=== PATIENT | female | born 1940 | race American Indian/Alaskan Native ===

== ENCOUNTER 2017-09-12 15:51 | Emergency (ER) | payer MEDICARE ==
[2017-09-12 16:59] LABS: Basophils # (Auto) 0.1 K/mm3 (0.0-0.1); Basophils % (Auto) 0.4 % (0.0-1.8); Eosinophils # (Auto) 0.2 K/mm3 (0.0-0.4); Eosinophils % (Auto) 1.2 % (0.0-4.3); Hematocrit 41.5 % (30.3-42.9); Hemoglobin 13.8 gm/dl (10.1-14.3); Lymphocytes # (Auto) 2.8 K/mm3 (1.2-5.4); Lymphocytes % (Auto) 19.3 % (13.4-35.0); Mean Corpuscular HGB Conc 33 % (30-34); Mean Corpuscular Hemoglobin 28 pg (28-32); Mean Corpuscular Volume 84 fl (79-97); Monocytes % (Auto) 6.6 % (0.0-7.3); Platelet Count 254 K/mm3 (140-440); Red Blood Count 4.92 M/mm3 (3.65-5.03); Red Cell Distribution Width 14.6 % (13.2-15.2)
[2017-09-12 17:05] LABS: INR 0.91 (0.87-1.13)
[2017-09-12 17:06] LABS: Partial Thromboplastin Time 23.5 Sec. (24.2-36.6)
[2017-09-12 17:27] LABS: BUN/Creatinine Ratio 25; Blood Urea Nitrogen 10 mg/dL (7-17); Hemolysis Index 9
--- NOTE | 2017-09-12 17:55 | Cat Scan Report ---
FINAL REPORT PROCEDURE: CT head without contrast. TECHNIQUE: Computerized tomography of the head was performed without contrast material. HISTORY: Patient fell, head injury. COMPARISON: No prior studies are available for comparison. FINDINGS: The ventricles are normal in size. The jewell matter and white matter appear normal. There are no mass lesions. There is no intracranial hemorrhage. The calvarium appears intact. The mastoid air cells are clear. There is fluid and severe mucosal thickening in the left maxillary sinus. There is opacification of the left frontal sinus. IMPRESSION: Normal study of the brain for age. Left maxillary and frontal sinusitis.
--- NOTE | 2017-09-12 17:57 | Cat Scan Report ---
FINAL REPORT PROCEDURE: CT cervical spine without contrast. TECHNIQUE: Computerized tomography of the cervical spine was performed from the skull base to T1 without contrast material. HISTORY: Patient fell, neck pain. COMPARISON: No prior studies are available for comparison. FINDINGS: The cervical vertebrae have normal height and alignment. There are no fractures. There is no subluxation. There is moderate disc space narrowing at C2-3 C5-6 and C6-7. There are small vertebral body osteophytes in the lower cervical spine. The spinal canal appears adequately patent. The facet joints appear satisfactory. The neural foramina are adequately patent. The prevertebral soft tissues have normal thickness. IMPRESSION: No evidence of acute cervical spine injury.
[2017-09-12] MEDS ORDERED: MORPHINE IV ONE (18:04)
[2017-09-12] MEDS ORDERED: ZOFRAN IV ONE (18:04)
[2017-09-12] MEDS ORDERED: NACL 0.9% 1000 ML 1,000 ML IV ONE (18:04)
--- NOTE | 2017-09-12 18:52 | XRay Report ---
FINAL REPORT PROCEDURE: Chest. TECHNIQUE: Chest radiograph anteroposterior view. CPT 30226 HISTORY: Patient fell, chest pain. COMPARISON: No prior studies are available for comparison. FINDINGS: The radiograph is underpenetrated. The heart size is normal. There is mild tortuosity of the thoracic aorta. The lungs are clear and well expanded. There are no pleural effusions. The soft tissues and regional skeleton are unremarkable. IMPRESSION: No evidence of acute disease.
--- NOTE | 2017-09-12 18:55 | XRay Report ---
FINAL REPORT PROCEDURE: Right shoulder. TECHNIQUE: Three views. HISTORY: Patient fell, shoulder pain. COMPARISON: No prior studies are available for comparison. FINDINGS: There is curvilinear calcification located posterior to the humeral head. This is seen best on the image done with internal rotation. This could represent an old cortical fracture fragment. I doubt that this represents an acute injury, however that is not definitely excluded. Clinical correlation is recommended. Degenerative soft tissue calcification is also a possibility. The glenohumeral joint appears satisfactory. The acromioclavicular joint is normal. The soft tissues are unremarkable. IMPRESSION: Question old cortical fracture fragment off the posterior margin of the humeral head. Please see above comments.
--- NOTE | 2017-09-12 19:17 | Emergency Department Report ---
ED General Adult HPI - General Chief complaint: Extremity Injury, Upper Stated complaint: RT SHOULDER PAIN/HEAD PAIN Time Seen by Provider: 09/12/17 16:16 Source: EMS Mode of arrival: Stretcher Limitations: Other - History of Present Illness Initial comments: The patient states that she is diabetic and has a tendency to fall. This time she fell, she tripped on a rug. She states the road is on a concrete slab and that is why she slipped on it. She complains of discomfort in her right shoulder progressively. She stated that she had some headache at triage but denied this to me. She was sent for a CT of her head cervical spine which showed no acute process. She is only complaining of right shoulder pain at the time of my exam. She doesn't report any previous fracture. She doesn't report any focal neurological change, dizziness or speech difficulty. She states that she is able to walk easily without difficulty. She does state that when her sugar goes up she feels somewhat dizzy. She denies any recent fever or chills or any other supplemental symptoms such as cough shortness breath or chest pain. -: Gradual Location: right, upper extremity Radiation: non-radiation Quality: aching Consistency: constant Improves with: none Worsens with: movement Associated Symptoms: denies other symptoms Treatments Prior to Arrival: other (sling right shoulder prior to my exam) - Related Data Home Medications Medication Instructions Recorded Confirmed Last Taken PARoxetine (NF) [Paxil] 40 mg PO DAILY 12/01/12 04/04/13 Unknown Previous Rx's Medication Instructions Recorded Last Taken Type Naproxen Sodium (Nf) [Anaprox DS] 550 mg PO BID PRN #20 tablet 12/01/12 Unknown Rx Ondansetron [Zofran] 4 mg PO Q8HR PRN #20 tablet 04/06/13 Unknown Rx oxyCODONE /ACETAMINOPHEN [Percocet 1 tab PO Q6HR PRN #20 tablet 06/09/13 Unknown Rx 5/325 mg] HYDROcodone/APAP 5-325 [[place] 1 each PO Q6HR PRN #14 tablet 09/12/17 Unknown Rx 5/325] Allergies Allergy/AdvReac Type Severity Reaction Status Date / Time meperidine HCl [From Demerol] Allergy Headache Verified 12/01/12 04:16 ED Review of Systems ROS: Stated complaint: RT SHOULDER PAIN/HEAD PAIN Other details as noted in HPI Constitutional: denies: chills, fever Eyes: denies: eye pain, eye discharge, vision change ENT: denies: ear pain, throat pain Respiratory: denies: cough, shortness of breath, wheezing Cardiovascular: denies: chest pain, palpitations Endocrine: no symptoms reported Gastrointestinal: denies: abdominal pain, nausea, diarrhea Genitourinary: denies: urgency, dysuria, discharge Musculoskeletal: as per HPI. denies: back pain, joint swelling, arthralgia Skin: denies: rash, lesions Neurological: denies: headache, weakness, paresthesias Psychiatric: denies: anxiety, depression Hematological/Lymphatic: denies: easy bleeding, easy bruising ED Past Medical Hx - Past Medical History Hx Hypertension: Yes Hx Heart Attack/AMI: Yes Hx Diabetes: Yes Additional medical history: colon ca, breast ca in remission - Social History Smoking Status: Never Smoker Substance Use Type: None - Medications Home Medications: Home Medications Medication Instructions Recorded Confirmed Last Taken Type Naproxen Sodium (Nf) [Anaprox DS] 550 mg PO BID PRN #20 tablet 12/01/12 Unknown Rx PARoxetine (NF) [Paxil] 40 mg PO DAILY 12/01/12 04/04/13 Unknown History Ondansetron [Zofran] 4 mg PO Q8HR PRN #20 tablet 04/06/13 Unknown Rx oxyCODONE /ACETAMINOPHEN [Percocet 1 tab PO Q6HR PRN #20 tablet 06/09/13 Unknown Rx 5/325 mg] HYDROcodone/APAP 5-325 [[place] 1 each PO Q6HR PRN #14 tablet 09/12/17 Unknown Rx 5/325] ED Physical Exam - General Limitations: Physical Limitation General appearance: alert, in no apparent distress, obese - Head Head exam: Present: atraumatic, normocephalic - Eye Eye exam: Present: normal appearance, PERRL, EOMI. Absent: scleral icterus - ENT ENT exam: Present: mucous membranes moist - Neck Neck exam: Present: normal inspection. Absent: tenderness, meningismus - Respiratory Respiratory exam: Present: normal lung sounds bilaterally. Absent: respiratory distress - Cardiovascular Cardiovascular Exam: Present: regular rate, normal rhythm. Absent: systolic murmur, diastolic murmur, rubs, gallop - GI/Abdominal GI/Abdominal exam: Present: soft, normal bowel sounds. Absent: distended, tenderness, guarding, rebound - Extremities Exam Extremities exam: Present: normal inspection, other (tenderness right shoulder and some guarding no gross deformity) - Back Exam Back exam: Present: normal inspection. Absent: CVA tenderness (R), CVA tenderness (L), muscle spasm, paraspinal tenderness, vertebral tenderness - Neurological Exam Neurological exam: Present: alert, oriented X3, CN II-XII intact. Absent: motor sensory deficit - Psychiatric Psychiatric exam: Present: normal affect, normal mood - Skin Skin exam: Present: warm, dry, intact, normal color. Absent: rash ED Course Vital Signs 09/12/17 09/12/17 16:13 16:34 Temperature 98.3 F Pulse Rate 107 H Respiratory 18 Rate Blood Pressure 117/67 [l] O2 Sat by Pulse 98 Oximetry - Reevaluation(s) Reevaluation #1: Patient given IV fluids and analgesia. She will be referred to orthopedics. 09/12/17 19:17 ED Medical Decision Making - Lab Data Result diagrams: 09/12/17 16:44 09/12/17 16:44 Laboratory Results - last 24 hr 09/12/17 09/12/17 09/12/17 16:44 16:44 16:44 WBC 14.6 H RBC 4.92 Hgb 13.8 Hct 41.5 MCV 84 MCH 28 MCHC 33 RDW 14.6 Plt Count 254 Lymph % (Auto) 19.3 [place] % (Auto) 6.6 Eos % (Auto) 1.2 Baso % (Auto) 0.4 Lymph # 2.8 [place] # 1.0 H Eos # 0.2 Baso # 0.1 Seg Neutrophils % 72.5 H Seg Neutrophils # 10.6 H PT 12.7 INR 0.91 APTT 23.5 L Sodium 134 L Potassium 3.5 L Chloride 92.1 L Carbon Dioxide 26 Anion Gap 19 BUN 10 Creatinine 0.4 L Estimated GFR > 60 BUN/Creatinine Ratio 25 Glucose 274 H Calcium 9.0 - Radiology Data Radiology results: report reviewed (radiologist suspects old fracture. I think this may very well be acute clinically there is cortical fracture of the humerus noted) interpreted by me: CT the head and cervical spine no acute process Critical care attestation.: If time is entered above; I have spent that time in minutes in the direct care of this critically ill patient, excluding procedure time. ED Disposition Clinical Impression: Fracture, humerus, greater tuberosity Qualifiers: Encounter type: initial encounter Fracture type: closed Fracture alignment: nondisplaced Laterality: right Qualified Code(s): S42.254A - Nondisplaced fracture of greater tuberosity of right humerus, initial encounter for closed fracture Hyperglycemia due to type 2 diabetes mellitus Qualifiers: Diabetes mellitus alf insulin use: unspecified alf insulin use status Qualified Code(s): E11.65 - Type 2 diabetes mellitus with hyperglycemia Disposition: TO HOME OR SELFCARE Is pt being admited?: No Does the pt Need Aspirin: No Condition: Stable Instructions: Diabetes Mellitus Type 2 in Adults (ED), Arm Fracture in Adults ( ED) Additional Instructions: Arm sling. Rest shoulder. Rx for pain. Follow-up with orthopedic doctor as listed. Follow-up with primary care physician as well. Prescriptions: HYDROcodone/APAP 5-325 [[place] 5/325] 1 each PO Q6HR PRN #14 tablet PRN Reason: Pain Referrals: AJAY JASON MD [Primary Care Provider] - 3-5 Days MAICO MACHUCA MD [Staff Physician] - 3-5 Days Time of Disposition: 19:19
[2017-09-12 19:59] VITALS: BP 126/69
== END 2017-09-12 19:57 | disposition home or self-care (01) ==
LOC: ED 15:51
DX: S42.251A Displaced fracture of greater tuberosity of right humerus, initial encounter for closed fracture (principal); I10 Essential (primary) hypertension; E11.65 Type 2 diabetes mellitus with hyperglycemia; I25.2 Old myocardial infarction; Z88.8 Allergy status to other drugs, medicaments and biological substances; W01.0XXA Fall on same level from slipping, tripping and stumbling without subsequent striking against object, initial encounter; Y93.89 Activity, other specified; Y92.89 Other specified places as the place of occurrence of the external cause; Y99.8 Other external cause status
CPT/HCPCS: 36415; 70450; 71045; 72125; 73030; 80048; 85025; 85610; 85730; 96361; 96374; 96375; 99285; J2270; J2405; J7030

== ENCOUNTER 2020-05-15 08:03 | Emergency (ER) | payer MEDICARE ==
[2020-05-15] MEDS ORDERED: fentaNYL 100 MCG/2 ML INJ IV ONE (08:29)
--- NOTE | 2020-05-15 08:35 | Emergency Department Report ---
ED General Adult HPI - General Chief complaint: Fall Stated complaint: RT HIP PAIN Time Seen by Provider: 05/15/20 08:27 Source: patient, EMS Mode of arrival: Stretcher Limitations: No Limitations - History of Present Illness Initial comments: This is a 79-year-old female who fell onto her right gluteal area tripping over a toy prior to arrival. She complains of severe pain of the right hip which radiates to the knee. There was no knee impact or pain there just radiation of the hip pain. She denies other injury. She states that she was not dizzy prior to the event nor did she experience any neurological symptoms. She did not pass out. She reports no other trauma. Apparently she was able to ambulate with a cane per EMS as told to the nurse. -: Sudden Location: right (Hip) Radiation: other (Right knee) Quality: aching Consistency: constant Improves with: none Worsens with: movement Associated Symptoms: denies other symptoms Treatments Prior to Arrival: none - Related Data Home Medications Medication Instructions Recorded Confirmed Last Taken PARoxetine (NF) [Paxil] 40 mg PO DAILY 12/01/12 04/04/13 Unknown Previous Rx's Medication Instructions Recorded Last Taken Type Naproxen Sodium (Nf) [Anaprox DS] 550 mg PO BID PRN #20 tablet 12/01/12 Unknown Rx Ondansetron [Zofran] 4 mg PO Q8HR PRN #20 tablet 04/06/13 Unknown Rx oxyCODONE /ACETAMINOPHEN [Percocet 1 tab PO Q6HR PRN #20 tablet 06/09/13 Unknown Rx 5/325 mg] HYDROcodone/APAP 5-325 [[place] 1 each PO Q6HR PRN #14 tablet 09/12/17 Unknown Rx 5/325] HYDROcodone/APAP 5-325 [[place] 1 each PO Q6HR PRN #10 tablet 05/15/20 Unknown Rx 5/325] Allergies Allergy/AdvReac Type Severity Reaction Status Date / Time meperidine HCl [From Demerol] Allergy Headache Verified 12/01/12 04:16 ED Review of Systems ROS: Stated complaint: RT HIP PAIN Other details as noted in HPI Constitutional: denies: chills, fever Eyes: denies: eye pain, vision change ENT: denies: ear pain, throat pain Respiratory: denies: cough, shortness of breath Cardiovascular: denies: chest pain, palpitations Endocrine: no symptoms reported Gastrointestinal: denies: abdominal pain, vomiting Genitourinary: denies: urgency, dysuria Musculoskeletal: as per HPI Skin: denies: rash, lesions Neurological: denies: headache, weakness Psychiatric: denies: anxiety, depression Hematological/Lymphatic: denies: easy bleeding, easy bruising ED Past Medical Hx - Past Medical History Previous Medical History?: Yes Hx Hypertension: Yes Hx Heart Attack/AMI: Yes Hx Diabetes: Yes Hx Arthritis: Yes Additional medical history: colon ca, breast ca in remission - Surgical History Past Surgical History?: Yes Additional Surgical History: L lumpectomy - Social History Smoking Status: Never Smoker Substance Use Type: None - Medications Home Medications: Home Medications Medication Instructions Recorded Confirmed Last Taken Type Naproxen Sodium (Nf) [Anaprox DS] 550 mg PO BID PRN #20 tablet 12/01/12 04/04/13 Unknown Rx PARoxetine (NF) [Paxil] 40 mg PO DAILY 12/01/12 04/04/13 Unknown History Ondansetron [Zofran] 4 mg PO Q8HR PRN #20 tablet 04/06/13 Unknown Rx oxyCODONE /ACETAMINOPHEN [Percocet 1 tab PO Q6HR PRN #20 tablet 06/09/13 Unknown Rx 5/325 mg] HYDROcodone/APAP 5-325 [[place] 1 each PO Q6HR PRN #14 tablet 09/12/17 Unknown Rx 5/325] HYDROcodone/APAP 5-325 [[place] 1 each PO Q6HR PRN #10 tablet 05/15/20 Unknown Rx 5/325] ED Physical Exam - General Limitations: Physical Limitation General appearance: alert, in no apparent distress, obese (Somewhat laying on her side) - Head Head exam: Present: atraumatic, normocephalic - Eye Eye exam: Present: normal appearance. Absent: scleral icterus - ENT ENT exam: Present: mucous membranes moist - Neck Neck exam: Present: normal inspection. Absent: tenderness, meningismus - Respiratory Respiratory exam: Present: normal lung sounds bilaterally. Absent: respiratory distress - Cardiovascular Cardiovascular Exam: Present: regular rate, normal rhythm. Absent: systolic murmur, diastolic murmur, rubs, gallop - GI/Abdominal GI/Abdominal exam: Present: soft, normal bowel sounds. Absent: distended, tenderness, guarding - Extremities Exam Extremities exam: Present: other (Leg is not grossly shortened or rotated. There is no deformity. There is generalized without point tenderness in the right hip area. The knee is apparently normal) - Back Exam Back exam: Present: other (Unable to inspect) - Neurological Exam Neurological exam: Present: alert, oriented X3 - Psychiatric Psychiatric exam: Present: normal affect, normal mood - Skin Skin exam: Present: warm, dry, intact, normal color. Absent: rash ED Course Vital Signs 05/15/20 05/15/20 05/15/20 08:17 08:49 09:04 Temperature 98.3 F Pulse Rate 90 Respiratory 18 18 18 Rate Blood Pressure 148/88 O2 Sat by Pulse 99 99 Oximetry 05/15/20 05/15/20 09:36 09:37 Temperature Pulse Rate Respiratory 18 18 Rate Blood Pressure O2 Sat by Pulse Oximetry - Reevaluation(s) Reevaluation #1: Pain improved. Patient is appropriate for orthopedic follow-up. X-rays read as negative by radiologist. On physical exam fracture is not suspected. 05/15/20 10:28 ED Medical Decision Making - Lab Data Result diagrams: 05/15/20 08:27 05/15/20 08:27 Laboratory Results - last 24 hr 05/15/20 05/15/20 05/15/20 08:27 08:27 08:27 WBC 8.1 RBC 4.74 Hgb 13.4 Hct 39.8 MCV 84 MCH 28 MCHC 34 RDW 15.1 Plt Count 213 Lymph % (Auto) 25.6 [place] % (Auto) 6.0 Eos % (Auto) 2.1 Baso % (Auto) 0.9 Lymph # (Auto) 2.1 [place] # (Auto) 0.5 Eos # (Auto) 0.2 Baso # (Auto) 0.1 Seg Neutrophils % 65.4 Seg Neutrophils # 5.3 PT 12.5 INR 0.95 APTT 28.8 Sodium 136 L Potassium TNR Chloride 99.3 Carbon Dioxide 33 H Anion Gap 10 BUN 9 Creatinine 0.4 L Estimated GFR > 60 BUN/Creatinine Ratio 23 Glucose 231 H Calcium 8.4 Magnesium Total Bilirubin Direct Bilirubin Indirect Bilirubin AST ALT Alkaline Phosphatase NT-Pro-B Natriuret Pep Total Protein Albumin Albumin/Globulin Ratio Blood Type Antibody Screen 05/15/20 05/15/20 08:28 08:41 WBC RBC Hgb Hct MCV MCH MCHC RDW Plt Count Lymph % (Auto) [place] % (Auto) Eos % (Auto) Baso % (Auto) Lymph # (Auto) [place] # (Auto) Eos # (Auto) Baso # (Auto) Seg Neutrophils % Seg Neutrophils # PT INR APTT Sodium Potassium Chloride Carbon Dioxide Anion Gap BUN Creatinine Estimated GFR BUN/Creatinine Ratio Glucose Calcium Magnesium 1.80 Total Bilirubin 0.40 Direct Bilirubin < 0.2 Indirect Bilirubin 0.2 AST 27 ALT 11 Alkaline Phosphatase 95 NT-Pro-B Natriuret Pep 271.1 Total Protein 6.7 Albumin 3.4 L Albumin/Globulin Ratio 1.0 Blood Type O POSITIVE Antibody Screen Negative - Radiology Data Radiology results: report reviewed (No fracture), image reviewed Critical care attestation.: If time is entered above; I have spent that time in minutes in the direct care of this critically ill patient, excluding procedure time. ED Disposition Clinical Impression: Contusion of right hip Qualifiers: Encounter type: initial encounter Qualified Code(s): S70.01XA - Contusion of right hip, initial encounter Disposition: DC- TO HOME OR SELFCARE Is pt being admited?: No Does the pt Need Aspirin: No Condition: Stable Instructions: Contusion, [id number] Additional Instructions: Nonweightbearing. Follow-up with orthopedist. Return to the emergency depar tment any acute change or worsening. Prescriptions: HYDROcodone/APAP 5-325 [[place] 5/325] 1 each PO Q6HR PRN #10 tablet PRN Reason: Pain Referrals: PRIMARY CAREMD [Primary Care Provider] - 3-5 Days MAICO MACHUCA MD [Staff Physician] - 2-3 Days Time of Disposition: 10:30
[2020-05-15 09:04] LABS: Basophils # (Auto) 0.1 K/mm3 (0.0-0.1); Basophils % (Auto) 0.9 % (0.0-1.8); Eosinophils # (Auto) 0.2 K/mm3 (0.0-0.4); Eosinophils % (Auto) 2.1 % (0.0-4.3); Hematocrit 39.8 % (30.3-42.9); Hemoglobin 13.4 gm/dl (10.1-14.3); Lymphocytes # (Auto) 2.1 K/mm3 (1.2-5.4); Lymphocytes % (Auto) 25.6 % (13.4-35.0); Mean Corpuscular HGB Conc 34 % (30-34); Mean Corpuscular Volume 84 fl (79-97); Monocytes # (Auto) 0.5 K/mm3 (0.0-0.8); Platelet Count 213 K/mm3 (140-440); Red Blood Count 4.74 M/mm3 (3.65-5.03); Red Cell Distribution Width 15.1 % (13.2-15.2)
[2020-05-15 09:21] LABS: Blood Urea Nitrogen 9 mg/dL (7-17); Calcium 8.4 mg/dL (8.4-10.2); Hemolysis Index 307
[2020-05-15 09:23] LABS: Alanine Aminotransferase 11 units/L (7-56); Albumin 3.4 g/dL (3.9-5)
[2020-05-15 09:26] LABS: INR 0.95 (0.87-1.13)
[2020-05-15 09:27] LABS: Partial Thromboplastin Time 28.8 Sec. (24.2-36.6)
[2020-05-15 09:28] LABS: BUN/Creatinine Ratio 23
[2020-05-15] MEDS ORDERED: KETOROLAC 30 MG/1 ML INJ IV ONE (09:29)
[2020-05-15 09:32] LABS: Bilirubin,Direct < 0.2 mg/dL (0-0.2)
--- NOTE | 2020-05-15 09:34 | XRay Report ---
RIGHT HIP 2 VIEW(S) INDICATION / CLINICAL INFORMATION: Fall Pain COMPARISON: CT abdomen pelvis 05/18/2012 FINDINGS: BONES / JOINT(S): No acute fracture or subluxation. Mild degenerative change. SOFT TISSUES: No significant abnormality. ADDITIONAL FINDINGS: Findings suggestive of constipation. Signer Name: Yong Carr MD Signed: 05/15/2020 9:30 AM Workstation Name: [id number]
--- NOTE | 2020-05-15 09:35 | XRay Report ---
CHEST 1 VIEW 05/15/2020 8:28 AM INDICATION / CLINICAL INFORMATION: hypertension. COMPARISON: 09/12/2017 FINDINGS: SUPPORT DEVICES: None. HEART / MEDIASTINUM: Stable. LUNGS / PLEURA: No significant pulmonary or pleural abnormality. No pneumothorax. ADDITIONAL FINDINGS: Note is made that the lateral frog-leg view from today's hip radiograph is inclu ded in the jacket for this chest radiograph. There is mild degenerative change of the right hip with anatomical joint alignment. No fracture is identified on this view. IMPRESSION: 1. No acute findings. Signer Name: Yong Carr MD Signed: 05/15/2020 9:31 AM Workstation Name: [id number]
[2020-05-15 10:30] LABS: Blood Urea Nitrogen 9 mg/dL (7-17); Calcium 8.3 mg/dL (8.4-10.2); Hemolysis Index 0
[2020-05-15 10:32] VITALS: BP 160/69
[2020-05-15 10:40] LABS: BUN/Creatinine Ratio 23
== END 2020-05-15 10:44 | disposition home or self-care (01) ==
LOC: ED 08:03
DX: S70.01XA Contusion of right hip, initial encounter (principal); I10 Essential (primary) hypertension; I25.2 Old myocardial infarction; E11.9 Type 2 diabetes mellitus without complications; M19.90 Unspecified osteoarthritis, unspecified site; Z98.890 Other specified postprocedural states; Z79.899 Other long term (current) drug therapy; Z88.8 Allergy status to other drugs, medicaments and biological substances; W22.8XXA Striking against or struck by other objects, initial encounter; Y93.89 Activity, other specified; Y92.89 Other specified places as the place of occurrence of the external cause; Y99.8 Other external cause status
CPT/HCPCS: 36415; 71045; 73502; 80048; 80076; 83735; 83880; 85025; 85610; 85730; 86850; 86900; 86901; 96374; 96375; 99284; J1885; J3010

== ENCOUNTER 2020-05-21 08:17 | Emergency (ER) | payer MEDICARE ==
[2020-05-21] MEDS ORDERED: MORPHINE 2 MG/1 ML INJ IV ONE (08:43)
[2020-05-21] MEDS ORDERED: ONDANSETRON 4 MG/2 ML INJ IV ONE (08:43)
--- NOTE | 2020-05-21 08:44 | Emergency Department Report ---
ED General Adult HPI - General Chief complaint: Fall Stated complaint: FALL/RT HIP PAIN Time Seen by Provider: 05/21/20 08:29 Source: patient, EMS Mode of arrival: Stretcher Limitations: Physical Limitation - History of Present Illness Initial comments: This is 79-year-old type II diabetic with a history of frequent falls and neuropathy. I saw her on 05/15/2020 after a slip and fall with left hip pain. She was able to ambulate. Her x-rays were negative. Patient states she called for orthopedic follow-up but did not get an appointment until next month. She states she has had persistent pain in the left hip area. She lives alone. She states that she has had some sensory changes of her left leg with decreased sensation. She admits to diabetic neuropathy. She states that she has tingling in her legs bilaterally and chronically. Patient does not did not report lower back pain on 05/15/2020. Her discomfort appears to be in the left iliac crest area more than anywhere else. Pain has been persistent for the last 6 days. She does not report any knee pain or other painful area. I did see the patient in 2018 as well after a mechanical fall and a fractured humerus. -: Gradual, week(s) Location: left (Pelvis/hip) Radiation: non-radiation Quality: aching Consistency: constant Improves with: none Worsens with: movement Associated Symptoms: denies other symptoms Treatments Prior to Arrival: none - Related Data Home Medications Medication Instructions Recorded Confirmed Last Taken PARoxetine (NF) [Paxil] 40 mg PO DAILY 12/01/12 04/04/13 Unknown Previous Rx's Medication Instructions Recorded Last Taken Type Naproxen Sodium (Nf) [Anaprox DS] 550 mg PO BID PRN #20 tablet 12/01/12 Unknown Rx Ondansetron [Zofran] 4 mg PO Q8HR PRN #20 tablet 04/06/13 Unknown Rx oxyCODONE /ACETAMINOPHEN [Percocet 1 tab PO Q6HR PRN #20 tablet 06/09/13 Unknown Rx 5/325 mg] HYDROcodone/APAP 5-325 [[place] 1 each PO Q6HR PRN #14 tablet 09/12/17 Unknown Rx 5/325] HYDROcodone/APAP 5-325 [[place] 1 each PO Q6HR PRN #10 tablet 05/15/20 Unknown Rx 5/325] Allergies Allergy/AdvReac Type Severity Reaction Status Date / Time meperidine HCl [From Demerol] Allergy Headache Verified 12/01/12 04:16 ED Review of Systems ROS: Stated complaint: FALL/RT HIP PAIN Other details as noted in HPI Constitutional: denies: chills, fever Eyes: denies: eye pain, vision change ENT: denies: ear pain, throat pain Respiratory: denies: cough, shortness of breath Cardiovascular: denies: chest pain, palpitations Endocrine: no symptoms reported Gastrointestinal: denies: abdominal pain, vomiting, constipation, hematemesis, melena Genitourinary: other (Patient denies urinary retention). denies: urgency, dysuria, frequency, hematuria Musculoskeletal: as per HPI Skin: denies: rash, lesions Neurological: as per HPI, numbness, paresthesias. denies: headache, weakness Psychiatric: denies: anxiety, depression Hematological/Lymphatic: denies: easy bleeding, easy bruising ED Past Medical Hx - Past Medical History Hx Hypertension: Yes Hx Heart Attack/AMI: Yes Hx Diabetes: Yes Hx Arthritis: Yes Additional medical history: colon ca, breast ca in remission - Surgical History Additional Surgical History: L lumpectomy - Social History Smoking Status: Never Smoker Substance Use Type: None - Medications Home Medications: Home Medications Medication Instructions Recorded Confirmed Last Taken Type Naproxen Sodium (Nf) [Anaprox DS] 550 mg PO BID PRN #20 tablet 12/01/12 04/04/13 Unknown Rx PARoxetine (NF) [Paxil] 40 mg PO DAILY 12/01/12 04/04/13 Unknown History Ondansetron [Zofran] 4 mg PO Q8HR PRN #20 tablet 04/06/13 Unknown Rx oxyCODONE /ACETAMINOPHEN [Percocet 1 tab PO Q6HR PRN #20 tablet 06/09/13 Unknown Rx 5/325 mg] HYDROcodone/APAP 5-325 [[place] 1 each PO Q6HR PRN #14 tablet 09/12/17 Unknown Rx 5/325] HYDROcodone/APAP 5-325 [[place] 1 each PO Q6HR PRN #10 tablet 05/15/20 Unknown Rx 5/325] ED Physical Exam - General Limitations: Physical Limitation General appearance: alert, in no apparent distress - Head Head exam: Present: atraumatic, normocephalic - Eye Eye exam: Present: normal appearance. Absent: scleral icterus - ENT ENT exam: Present: mucous membranes moist - Neck Neck exam: Present: normal inspection - Respiratory Respiratory exam: Present: normal lung sounds bilaterally. Absent: respiratory distress - Cardiovascular Cardiovascular Exam: Present: regular rate, normal rhythm. Absent: systolic murmur, diastolic murmur, rubs, gallop - GI/Abdominal GI/Abdominal exam: Present: soft, normal bowel sounds, organomegaly (Bladder palpable). Absent: distended, tenderness, guarding, rebound - Extremities Exam Extremities exam: Present: normal inspection, other (Patient does not appear to have much pain on gentle internal and external rotation of her left hip.). Absent: pedal edema, calf tenderness - Back Exam Back exam: Present: other (It seems like the patient is referring tenderness over the left iliac crest may be left SI area). Absent: muscle spasm, paraspinal tenderness, vertebral tenderness - Neurological Exam Neurological exam: Present: alert, oriented X3, CN II-XII intact, other (Patient can localize fine touch of her left lower extremity. She states there is a subjective difference left leg in general compared to the right ) - Psychiatric Psychiatric exam: Present: normal affect, normal mood - Skin Skin exam: Present: warm, dry, intact, normal color. Absent: rash ED Course Vital Signs 05/21/20 05/21/20 05/21/20 08:19 09:02 12:06 Temperature 98.6 F Pulse Rate 91 H 90 96 H Respiratory 15 15 18 Rate Blood Pressure 192/121 Blood Pressure 155/82 163/80 [Right] O2 Sat by Pulse 100 98 95 Oximetry 05/21/20 13:50 Temperature Pulse Rate 99 H Respiratory 19 Rate Blood Pressure Blood Pressure 168/97 [Right] O2 Sat by Pulse 94 Oximetry - Reevaluation(s) Reevaluation #1: Patient told the nurse that she feels better and she wants to go home. It seems like she might benefit from home health. I will try to get her an aluminum walker. She has an appointment with Dr. Fregoso already. She states she needs a new primary care provider. She is ready for discharge. 05/21/20 14:32 ED Medical Decision Making - Lab Data Result diagrams: 05/21/20 09:59 05/21/20 09:59 Laboratory Results - last 24 hr 05/21/20 09:59 WBC 7.7 RBC 4.86 Hgb 13.7 Hct 40.6 MCV 84 MCH 28 MCHC 34 RDW 15.3 H Plt Count 238 Lymph % (Auto) 31.3 Mccreary % (Auto) 7.4 H Eos % (Auto) 2.3 Baso % (Auto) 0.3 Lymph # (Auto) 2.4 Mccreary # (Auto) 0.6 Eos # (Auto) 0.2 Baso # (Auto) 0.0 Seg Neutrophils % 58.7 Seg Neutrophils # 4.5 Laboratory Results - last 24 hr 05/21/20 05/21/20 05/21/20 09:59 09:59 09:59 WBC 7.7 RBC 4.86 Hgb 13.7 Hct 40.6 MCV 84 MCH 28 MCHC 34 RDW 15.3 H Plt Count 238 Lymph % (Auto) 31.3 Mccreary % (Auto) 7.4 H Eos % (Auto) 2.3 Baso % (Auto) 0.3 Lymph # (Auto) 2.4 Mccreary # (Auto) 0.6 Eos # (Auto) 0.2 Baso # (Auto) 0.0 Seg Neutrophils % 58.7 Seg Neutrophils # 4.5 PT 12.9 INR 0.99 APTT 30.3 Sodium 140 Potassium 3.7 Chloride 100.5 Carbon Dioxide 33 H Anion Gap 10 BUN 10 Creatinine 0.5 L Estimated GFR > 60 BUN/Creatinine Ratio 20 Glucose 136 H Calcium 8.9 - Radiology Data Radiology results: report reviewed INDICATION: lower back pain, sensory change, fall. TECHNIQUE: Axial CT images of the lumbar spine were obtained after administration of intrathecal contrast. Sagittal and coronal reformatted images were produced. All CT scans at this location are performed using CT dose reduction for ALARA by means of automated exposure control. COMPARISON: CT abdomen pelvis 05/18/2012 FINDINGS: POST-SURGICAL CHANGES: None. ALIGNMENT: Normal alignment is maintained throughout the lumbar region. VERTEBRAE: No indication of fracture or bone destruction. INTERVERTEBRAL DISCS: Disc vacuum phenomena is noted at the L1-2, L2-3, L3-4 and L4-5 levels. Disc vacuum phenomena is also observed at the T10-T11 level. [id number] ANALYSIS: T10-T11: Disc vacuum phenomena is noted. Bilateral lateral osteophyte formation is observed. Central spinal canal and neuroforamina are adequately maintained. T11-T12: Mild posterior osteophyte formation is noted. Central spinal canal and neuroforamina are adequately maintained. T12/L1: Spinal canal is expanded. There is remodeling of the lamina and expansion of the left T12 nerve root neuroforamina. This is likely a manifestation of dural ectasia which is unchanged in comparison to previous study dated 05/18/2012. L1-2: Loss of disc height and disc vacuum phenomena. There is remodeling of the bony spinal canal with chronic deformity of the lamina lateralizing towards the right. There is expansion of the left L1 nerve root neuroforamina. 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 L2-3: Loss of disc height and disc vacuum phenomena are noted. Broad-based disc bulge and facet arthritic changes are observed. There is mild degree of central canal stenosis at the L2-3 level. This has progressed since prior study. Moderate right-sided and mild left-sided neuroforaminal narrowing is observed. L3-4: Loss of disc height and disc vacuum phenomena are demonstrated. Mild broad-based disc bulge is observed. Bilateral facet arthritic changes are noted. Mild degree of central canal stenosis is present. The L3 nerve root neuroforamina appear to be adequately maintained. L4-5: Loss of disc height and disc vacuum phenomena are noted. Bilateral facet arthritic changes are observed. Facet arthropathy and broad-based disc bulge contribute to moderate central canal stenosis at the L4-5 level. This has progressed compared to previous study. The L4 nerve root neuroforamina are mildly narrowed bilaterally. L5-S1: Bilateral facet arthritic changes are noted. Bilateral lateral osteophyte formation is a prominent finding. Central spinal canal and neuroforamina are adequately maintained. Sacrum: Bilateral SI joint vacuum phenomenon is noted. No intrinsic sacral lesions are identified. PARASPINAL SOFT TISSUES: Urinary bladder is enlarged. Are there signs or symptoms of urinary retention Slight atherosclerotic plaque is seen along the course of the abdominal aorta. ADDITIONAL FINDINGS: None. IMPRESSION: 1. 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 2. Lumbar spondylosis with multifocal neuroforaminal narrowing. 3. Mild central canal stenosis L3-4 and moderate central canal stenosis L4-5. 4. Urinary bladder is enlarged. Are there signs or symptoms of neurogenic bladder Signer Name: Yusef Dean MD MRI report Essentially radiologist states that he chronic arachnoid cyst accounts for some of the findings and that the CT interpretation exaggerated the abnormals. No acute or urgently actionable issues were seen. Critical care attestation.: If time is entered above; I have spent that time in minutes in the direct care of this critically ill patient, excluding procedure time. ED Disposition Clinical Impression: Right hip pain Sciatica Qualifiers: Laterality: right Qualified Code(s): M54.31 - Sciatica, right side Spinal stenosis Qualifiers: Spinal region: lumbar Neurogenic claudication status: without neurogenic claudication Qualified Code(s): M48.061 - Spinal stenosis, lumbar region without neurogenic claudication Disposition: DC- TO HOME OR SELFCARE Is pt being admited?: No Does the pt Need Aspirin: No Condition: Stable Instructions: Spinal Stenosis, Hip Pain, Sciatica Additional Instructions: Follow-up with Dr. Fregoso as planned. Return as needed any acute change or problem. Referrals: PRIMARY CARE, [Primary Care Provider] - 3-5 Days
[2020-05-21] MEDS ORDERED: KETOROLAC 30 MG/1 ML INJ IV ONE (09:51)
--- NOTE | 2020-05-21 10:08 | Cat Scan Report ---
CT lower extremity RT wo con, CT pelvis wo con INDICATION: Fall with right hip and right iliac crest pain. TECHNIQUE: All CT scans at this location are performed using the following dose modulation technique: Automated exposure control. Helical slices were obtained through the pelvis and right hip. Coronal and sagittal reformatted images were obtained. COMPARISON: Right hip radiographs dated 05/13/2020 and 05/15/2020 FINDINGS: No fracture is seen in the pelvis or right hip. There is mild degenerative change in the hip joint sp aces. There is mild degenerative change at L4-5. No focal lytic or sclerotic lesions are seen. No hematoma is seen within the pelvis. There is sigmoid diverticulosis. Mild atherosclerotic calcific ations are noted. There is no obstruction, inflammation, or free air in the imaged portion of the pel vis and lower abdomen. IMPRESSION: 1. No fracture or dislocation is seen. No focal lytic or sclerotic lesions are seen. Signer Name: Joe Paulino MD Signed: 05/21/2020 10:03 AM Workstation Name: [id number]
--- NOTE | 2020-05-21 10:26 | Cat Scan Report ---
CT LUMBAR SPINE WITHOUT CONTRAST INDICATION: lower back pain, sensory change, fall. TECHNIQUE: Axial CT images of the lumbar spine were obtained after administration of intrathecal contrast. Sagi ttal and coronal reformatted images were produced. All CT scans at this location are performed using CT dose reduction for ALARA by means of automated exposure control. COMPARISON: CT abdomen pelvis 05/18/2012 FINDINGS: POST-SURGICAL CHANGES: None. ALIGNMENT: Normal alignment is maintained throughout the lumbar region. VERTEBRAE: No indication of fracture or bone destruction. INTERVERTEBRAL DISCS: Disc vacuum phenomena is noted at the L1-2, L2-3, L3-4 and L4-5 levels. Disc va cuum phenomena is also observed at the T10-T11 level. [id number] ANALYSIS: T10-T11: Disc vacuum phenomena is noted. Bilateral lateral osteophyte formation is observed. Central spinal canal and neuroforamina are adequately maintained. T11-T12: Mild posterior osteophyte formation is noted. Central spinal canal and neuroforamina are hanane quately maintained. T12/L1: Spinal canal is expanded. There is remodeling of the lamina and expansion of the left T12 ner ve root neuroforamina. This is likely a manifestation of dural ectasia which is unchanged in comparis on to previous study dated 05/18/2012. L1-2: Loss of disc height and disc vacuum phenomena. There is remodeling of the bony spinal canal wit h chronic deformity of the lamina lateralizing towards the right. There is expansion of the left L1 n erve root neuroforamina. 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 L2-3: Loss of disc height and disc vacuum phenomena are noted. Broad-based disc bulge and facet arthr itic changes are observed. There is mild degree of central canal stenosis at the L2-3 level. This has progressed since prior study. Moderate right-sided and mild left-sided neuroforaminal narrowing is o bserved. L3-4: Loss of disc height and disc vacuum phenomena are demonstrated. Mild broad-based disc bulge is observed. Bilateral facet arthritic changes are noted. Mild degree of central canal stenosis is prese nt. The L3 nerve root neuroforamina appear to be adequately maintained. L4-5: Loss of disc height and disc vacuum phenomena are noted. Bilateral facet arthritic changes are observed. Facet arthropathy and broad-based disc bulge contribute to moderate central canal stenosis at the L4-5 level. This has progressed compared to previous study. The L4 nerve root neuroforamina ar e mildly narrowed bilaterally. L5-S1: Bilateral facet arthritic changes are noted. Bilateral lateral osteophyte formation is a promi nent finding. Central spinal canal and neuroforamina are adequately maintained. Sacrum: Bilateral SI joint vacuum phenomenon is noted. No intrinsic sacral lesions are identified. PARASPINAL SOFT TISSUES: Urinary bladder is enlarged. Are there signs or symptoms of urinary retentio n Slight atherosclerotic plaque is seen along the course of the abdominal aorta. ADDITIONAL FINDINGS: None. IMPRESSION: 1. 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 2. Lumbar spondylosis with multifocal neuroforaminal narrowing. 3. Mild central canal stenosis L3-4 and moderate central canal stenosis L4-5. 4. Urinary bladder is enlarged. Are there signs or symptoms of neurogenic bladder Signer Name: Yusef Dean MD Signed: 05/21/2020 10:22 AM Workstation Name: [id number]
[2020-05-21 10:56] LABS: Basophils % (Auto) 0.3 % (0.0-1.8); Eosinophils # (Auto) 0.2 K/mm3 (0.0-0.4); Eosinophils % (Auto) 2.3 % (0.0-4.3); Hematocrit 40.6 % (30.3-42.9); Hemoglobin 13.7 gm/dl (10.1-14.3); Lymphocytes # (Auto) 2.4 K/mm3 (1.2-5.4); Lymphocytes % (Auto) 31.3 % (13.4-35.0); Mean Corpuscular HGB Conc 34 % (30-34); Mean Corpuscular Volume 84 fl (79-97); Monocytes # (Auto) 0.6 K/mm3 (0.0-0.8); Monocytes % (Auto) 7.4 % (0.0-7.3); Platelet Count 238 K/mm3 (140-440); Red Blood Count 4.86 M/mm3 (3.65-5.03); Red Cell Distribution Width 15.3 % (13.2-15.2)
[2020-05-21] MEDS ORDERED: diphenhydrAMINE 50 MG/ML VIAL IV ONE (10:59)
[2020-05-21] MEDS ORDERED: HYDROmorphone 1 MG/1 ML INJ IV ONE (10:59)
[2020-05-21 11:06] LABS: INR 0.99 (0.87-1.13)
[2020-05-21 11:07] LABS: Partial Thromboplastin Time 30.3 Sec. (24.2-36.6)
[2020-05-21 11:09] LABS: BUN/Creatinine Ratio 20; Blood Urea Nitrogen 10 mg/dL (7-17); Calcium 8.9 mg/dL (8.4-10.2); Hemolysis Index 9
[2020-05-21 13:51] VITALS: BP 168/97
--- NOTE | 2020-05-21 14:13 | Magnetic Resonance Report ---
MRI LUMBAR SPINE WITHOUT CONTRAST INDICATION / CLINICAL INFORMATION: spinal stenosis with leg numbness. TECHNIQUE: Multisequence, multiplanar images of the lumbar spine were obtained. COMPARISON: The lumbar spine also dated 05/21/2020 FINDINGS: THORACOLUMBAR SPINAL CANAL: On recent CT lumbar spine remodeling of the spinal canal was demonstrated at the the T12-L1 and L1-2 levels. This was presumed to be secondary to dural ectasia. On MRI lumbar spine it is now evident that there is an arachnoid cyst in the spinal canal in this region responsib le for the bony remodeling. The arachnoid cyst extends along the dorsal aspect of the spinal canal fr om the mid T11 vertebral body down towards the inferior endplate of L1. There is neuroforaminal exten parviz through the left T12 and L1 nerve root neuroforamina accounting for the bony changes demonstrate d on recent CT lumbar spine examination. There is compression of the dorsal aspect of the thecal sac with no evidence of thecal sac stenosis or central canal stenosis. As noted in the report of CT lumba r spine these changes have been stable since CT abdomen pelvis dated 05/18/2012. . POSTOPERATIVE CHANGES:None ALIGNMENT: Normal alignment is maintained throughout the lumbar region. VERTEBRAE:Reactive changes secondary to degenerative disc disease are observed at multiple endplates. These are most pronounced at inferior endplate L4. DISC MORPHOLOGY: Widespread disc desiccation is present throughout the lumbar region. VISUALIZED SPINAL CORD: Distal thoracic spinal cord, conus and nerve roots of the cauda equina all soler ve an unremarkable appearance. Conus terminates at about the level of mid L1 vertebral body. [id number] ANALYSIS: L1-2: No significant abnormality. L2-3: Disc desiccation is noted. Broad-based disc bulge is present. Bilateral facet arthropathy is ob served. Mild degree of central canal stenosis is evident at the L2-3 level. The L2 nerve root neurofo ramina are adequately maintained. L3-4: Disc desiccation is noted. Mild broad-based disc bulge and facet arthritic changes are observed . There is mild narrowing of the central spinal canal without definite stenosis. The L3 nerve root ne uroforamina are adequate in size. L4-5: Disc desiccation is noted. Reactive change secondary to degenerative disc disease is observed a t the adjacent endplates. Broad-based disc bulge is evident. Bilateral facet arthritic changes are ob served. Mild narrowing of the central spinal canal is demonstrated without definite central canal koffi nosis. The L4 nerve root neuroforamina are adequately maintained. L5-S1: Bilateral facet arthropathy is noted. There is no indication of disc herniation, central canal stenosis or neuroforaminal narrowing. PARASPINAL SOFT TISSUES: Evaluation of the paraspinous soft tissues reveals no definite abnormalities . IMPRESSION: 1. On recent CT lumbar spine remodeling of the bony spinal canal and left-sided neural foramina at th e thoracolumbar junction is attributed to probable dural ectasia. On MRI lumbar spine these bony gonzalez ges are now known to be secondary to a large arachnoid cyst located in the dorsal aspect of the thora columbar spinal canal from mid T10 through inferior endplate L1. As noted in CT lumbar spine report t hese bony changes are stable since CT abdomen pelvis 05/18/2012. The large arachnoid cyst is not assoc iated with cord compression. 2. Widespread lumbar spondylosis. 3. Mild central canal stenosis L2-3. 4. The degree of central canal stenosis described on CT lumbar spine at the L3-4 and L4-5 levels appe ars to have been overestimated based on the findings of this MRI lumbar spine examination. Signer Name: Yusef Dean MD Signed: 05/21/2020 2:08 PM Workstation Name: [id number]
== END 2020-05-21 15:05 | disposition home or self-care (01) ==
LOC: ED 08:17
DX: M48.061 Spinal stenosis, lumbar region without neurogenic claudication (principal); M54.30 Sciatica, unspecified side; M25.551 Pain in right hip; I10 Essential (primary) hypertension; I25.2 Old myocardial infarction; M19.91 Primary osteoarthritis, unspecified site; Z98.890 Other specified postprocedural states; Z79.899 Other long term (current) drug therapy; Z88.8 Allergy status to other drugs, medicaments and biological substances
CPT/HCPCS: 36415; 72131; 72148; 72192; 73700; 80048; 85025; 85610; 85730; 96374; 96375; 99284; J1170; J1200; J1885; J2270; J2405

== ENCOUNTER 2020-07-11 09:12 | Outpatient (CLI) | payer MEDICARE ==
--- NOTE | 2020-07-11 10:42 | XRay Report ---
XR knees standing AP Bilateral INDICATION / CLINICAL INFORMATION: BILATERAL PRIMARY OSTEOARTHRITIS OF KNEES. COMPARISON: None available. FINDINGS: BONES/JOINT(S): No acute fracture or subluxation. Mild tricompartmental DJD in both knees. SOFT TISSUES: No significant abnormality. ADDITIONAL FINDINGS: None. Signer Name: Nash Fisher MD Signed: 07/11/2020 10:38 AM Workstation Name: [id number]
== END 2020-07-11 09:13 | disposition home or self-care (01) ==
LOC: XRAY 09:12
PROVIDERS: ATTEND Orthopaedic Surgery
DX: M17.0 Bilateral primary osteoarthritis of knee (principal)
CPT/HCPCS: 73565

== ENCOUNTER 2021-02-08 22:15 | Observation (INO) | payer MEDICARE ==
[2021-02-08] MEDS ORDERED: ASPIRIN 81 MG TAB CHEW PO ONE (22:30)
[2021-02-08] MEDS ORDERED: ONDANSETRON 4 MG/2 ML INJ IV ONE (22:31)
[2021-02-08] MEDS ORDERED: MORPHINE 4 MG/1 ML INJ IV ONE (22:31)
--- NOTE | 2021-02-08 22:35 | Emergency Department Report ---
ED Chest Pain HPI - General Chief Complaint: Chest Pain Stated Complaint: CHEST PAIN, KARISHMA Time Seen by Provider: 02/08/21 22:30 Source: patient, EMS Mode of arrival: Stretcher Limitations: No Limitations - History of Present Illness Initial Comments: Patient is 80 years old female with history of hypertension, diabetes, coronary artery disease and congestive heart failure. Patient brought to the emergency room via EMS from home for evaluation of substernal chest pain, pressure with no radiation. Patient stated that pain started approximately 5 days ago. Patient also reported shortness of breath and difficulty in breathing. She also reported bilateral lower extremity swelling. Patient stated that she was on furosemide but she stopped taking it. Patient denied any fever or chills. MD Complaint: chest pain -: days(s) (5) Onset: during rest, during exertion Pain Location: substernal Severity: moderate Severity scale (0 -10): 6 Quality: pressure Improves With: nothing - Related Data Home Medications Medication Instructions Recorded Confirmed Last Taken PARoxetine (NF) [Paxil] 40 mg PO DAILY 12/01/12 04/04/13 Unknown Previous Rx's Medication Instructions Recorded Last Taken Type Naproxen Sodium (Nf) [Anaprox DS] 550 mg PO BID PRN #20 tablet 12/01/12 Unknown Rx Ondansetron [Zofran] 4 mg PO Q8HR PRN #20 tablet 04/06/13 Unknown Rx oxyCODONE /ACETAMINOPHEN [Percocet 1 tab PO Q6HR PRN #20 tablet 06/09/13 Unknown Rx 5/325 mg] HYDROcodone/APAP 5-325 [[place] 1 each PO Q6HR PRN #14 tablet 09/12/17 Unknown Rx 5/325] HYDROcodone/APAP 5-325 [[place] 1 each PO Q6HR PRN #10 tablet 05/15/20 Unknown Rx 5/325] HYDROcodone/APAP 5-325 [[place] 1 each PO Q6HR PRN #10 tablet 05/21/20 Unknown Rx 5/325] Allergies Allergy/AdvReac Type Severity Reaction Status Date / Time meperidine HCl [From Demerol] Allergy Headache Verified 02/08/21 22:24 Heart Score - HEART Score History: Moderately suspicious EKG: Non-specific Age: > 65 Risk factors: > 3 risk factors or hx of atherosclerotic disease Troponin: < normal limit HEART Score: 6 - EKG Read Time Time EKG Completed: 22:54 EKG Read Time: 22:55 ED Review of Systems ROS: Stated complaint: CHEST PAIN, KARISHMA Other details as noted in HPI Comment: All other systems reviewed and negative Constitutional: denies: chills, fever Respiratory: orthopnea, shortness of breath, SOB with exertion, SOB at rest. denies: wheezing Cardiovascular: chest pain Gastrointestinal: denies: abdominal pain, nausea, vomiting ED Past Medical Hx - Past Medical History Hx Hypertension: Yes Hx Heart Attack/AMI: Yes Hx Diabetes: Yes Hx Arthritis: Yes Additional medical history: colon ca, breast ca in remission - Surgical History Additional Surgical History: L lumpectomy - Social History Smoking Status: Never Smoker Substance Use Type: None - Medications Home Medications: Home Medications Medication Instructions Recorded Confirmed Last Taken Type Naproxen Sodium (Nf) [Anaprox DS] 550 mg PO BID PRN #20 tablet 12/01/12 04/04/13 Unknown Rx PARoxetine (NF) [Paxil] 40 mg PO DAILY 12/01/12 04/04/13 Unknown History Ondansetron [Zofran] 4 mg PO Q8HR PRN #20 tablet 04/06/13 Unknown Rx oxyCODONE /ACETAMINOPHEN [Percocet 1 tab PO Q6HR PRN #20 tablet 06/09/13 Unknown Rx 5/325 mg] HYDROcodone/APAP 5-325 [[place] 1 each PO Q6HR PRN #14 tablet 09/12/17 Unknown Rx 5/325] HYDROcodone/APAP 5-325 [[place] 1 each PO Q6HR PRN #10 tablet 05/15/20 Unknown Rx 5/325] HYDROcodone/APAP 5-325 [[place] 1 each PO Q6HR PRN #10 tablet 05/21/20 Unknown Rx 5/325] ED Physical Exam - General Limitations: No Limitations General appearance: alert, in no apparent distress - Head Head exam: Present: atraumatic, normocephalic, normal inspection - Eye Eye exam: Present: normal appearance, PERRL - ENT ENT exam: Present: normal orophraynx, mucous membranes moist - Neck Neck exam: Present: normal inspection, full ROM. Absent: tenderness, meningismus - Respiratory Respiratory exam: Present: normal lung sounds bilaterally - Cardiovascular Cardiovascular Exam: Present: tachycardia - GI/Abdominal GI/Abdominal exam: Present: soft, normal bowel sounds. Absent: distended, tenderness, guarding, rebound, rigid, organomegaly, mass, bruit, pulsatile mass, hernia - Extremities Exam Extremities exam: Present: normal capillary refill, pedal edema. Absent: calf tenderness - Back Exam Back exam: Absent: CVA tenderness (R), CVA tenderness (L) - Neurological Exam Neurological exam: Present: alert, oriented X3 - Psychiatric Psychiatric exam: Present: normal mood - Skin Skin exam: Present: warm, intact, normal color ED Course Vital Signs 02/08/21 02/08/21 02/08/21 22:24 23:13 23:18 Temperature 97.5 F L 98.9 F Pulse Rate 108 H 110 H Respiratory 18 20 20 Rate Blood Pressure 163/75 161/84 [Left] O2 Sat by Pulse 98 94 94 Oximetry ED Medical Decision Making - Lab Data Result diagrams: 02/08/21 22:36 02/08/21 22:36 - EKG Data -: EKG Interpreted by [place] EKG shows normal: sinus rhythm Rate: tachycardia - EKG Data Interpretation: no acute changes - Radiology Data Radiology results: report reviewed - Medical Decision Making Patient is 80 years old female with history of hypertension, diabetes, coronary artery disease and congestive heart failure. Patient brought to the emergency room via EMS from home for evaluation of substernal chest pain, pressure with no radiation. Patient stated that pain started approximately 5 days ago. Patient also reported shortness of breath and difficulty in breathing. She also reported bilateral lower extremity swelling. Patient stated that she was on furosemide but she stopped taking it. Patient denied any fever or chills. EKG showed no ST elevation. Labs reviewed and is unremarkable including a negative troponin. Blood glucose is 340. Patient received insulin. Patient received morphine and Zofran. Patient stated that her chest pain is better now. I discussed the patient with Dr. Mayfield, He agreed to admit the patient to medical service for further management. Critical care attestation.: If time is entered above; I have spent that time in minutes in the direct care of this critically ill patient, excluding procedure time. ED Disposition Clinical Impression: Acute chest pain Disposition: 02 SHORT [facility] Is pt being admited?: Yes Condition: Stable Instructions: Chest Pain (ED)
[2021-02-08 22:56] LABS: Basophils % (Auto) 0.3 % (0.0-1.8); Eosinophils # (Auto) 0.2 K/mm3 (0.0-0.4); Eosinophils % (Auto) 1.8 % (0.0-4.3); Hematocrit 36.1 % (30.3-42.9); Hemoglobin 11.8 gm/dl (10.1-14.3); Lymphocytes # (Auto) 2.5 K/mm3 (1.2-5.4); Lymphocytes % (Auto) 22.2 % (13.4-35.0); Mean Corpuscular HGB Conc 33 % (30-34); Mean Corpuscular Volume 86 fl (79-97); Monocytes # (Auto) 0.8 K/mm3 (0.0-0.8); Monocytes % (Auto) 7.4 % (0.0-7.3); Platelet Count 254 K/mm3 (140-440); Red Blood Count 4.21 M/mm3 (3.65-5.03); Red Cell Distribution Width 15.3 % (13.2-15.2)
[2021-02-08 23:05] LABS: INR 0.82 (0.87-1.13)
--- NOTE | 2021-02-08 23:09 | XRay Report ---
CHEST 1 VIEW 02/08/2021 10:02 PM INDICATION / CLINICAL INFORMATION: Chest Pain. Elevated blood glucose level. COMPARISON: 05/15/20 FINDINGS: SUPPORT DEVICES: None. HEART / MEDIASTINUM: No significant abnormality. LUNGS / PLEURA: No significant pulmonary or pleural abnormality. No pneumothorax. ADDITIONAL FINDINGS: No significant additional findings. IMPRESSION: 1. No acute findings. No change. Signer Name: Lissa Gonzalez MD Signed: 02/08/2021 11:04 PM Workstation Name: [id number]
[2021-02-08 23:21] LABS: Alanine Aminotransferase 7 units/L (7-56); Albumin 3.7 g/dL (3.9-5); Blood Urea Nitrogen 9 mg/dL (7-17); Calcium 8.6 mg/dL (8.4-10.2); Hemolysis Index 9
[2021-02-08 23:30] LABS: BUN/Creatinine Ratio 15; Bilirubin,Direct < 0.2 mg/dL (0-0.2)
[2021-02-08] MEDS ORDERED: INSULIN REGULAR, HUMAN 100 UNITS/1 ML IV ONE (23:54)
[2021-02-09] MEDS ORDERED: ONDANSETRON 4 MG/2 ML INJ ONE (00:34)
[2021-02-09] MEDS ORDERED: MORPHINE 4 MG/1 ML INJ ONE (00:35)
[2021-02-09] MEDS ORDERED: ASPIRIN 81 MG TAB CHEW ONE (00:36)
[2021-02-09] MEDS ORDERED: traMADol 50 MG TAB PO PRN (01:24)
[2021-02-09] MEDS ORDERED: ACETAMINOPHEN 325 MG TAB PO PRN ×2 (01:24)
[2021-02-09] MEDS ORDERED: DEXTROSE 50% IN WATER (25GM) 50 ML SYRINGE IV PRN (01:24)
[2021-02-09] MEDS ORDERED: ONDANSETRON 4 MG/2 ML INJ IV PRN (01:24)
[2021-02-09] MEDS ORDERED: MORPHINE 2 MG/1 ML INJ IV PRN (01:24)
[2021-02-09] MEDS ORDERED: MORPHINE 4 MG/1 ML INJ IV PRN ×2 (01:24)
[2021-02-09] MEDS ORDERED: NITROGLYCERIN 0.4 MG TAB SUBL SL PRN (01:24)
[2021-02-09] MEDS ORDERED: MAGNESIUM HYDROXIDE (MOM) ORAL LIQD UDC PO PRN (01:24)
--- NOTE | 2021-02-09 01:41 | History and Physical Report ---
History of Present Illness Date of examination: 02/09/21 Date of admission: 02/09/21 00:03 Chief complaint: Chest pain History of present illness: 89-year-old -[place] female with known history of hypertension, diabetes mellitus, congestive heart failure coronary artery disease presents to the emergency room today complaining of chest pain. Chest pain is substernal and felt like pressure. There was no radiation. Chest pain has been intermittent and has been ongoing for the past 5 days. No known relieving or exacerbating factor. She has had associated shortness of breath. She also indicates she has been having some lower extremity swelling over the past few days. She denies any lower extremity pain. Patient indicates that she had similar episode about 10 years ago and had a cardiac catheterization. She does not recall having any stent placement. Work-up in the emergency room today, chest x-ray shows no acute findings. CT angiogram of the chest shows no evidence of pulmonary embolism or acute findings EKG and troponins were unremarkable. Potassium was 6 low as 3.0 and a blood glucose of 340 Past History Past Medical History: acute [place], arthritis, diabetes, hypertension, other (History of colon cancer, breast cancer in remission) Past Surgical History: Other (Left lumpectomy) Social history: no significant social history Family history: no significant family history Medications and Allergies Allergies Allergy/AdvReac Type Severity Reaction Status Date / Time meperidine HCl [From Demerol] Allergy Headache Verified 02/08/21 22:24 Home Medications Medication Instructions Recorded Confirmed Last Taken Type Naproxen Sodium (Nf) [Anaprox DS] 550 mg PO BID PRN #20 tablet 12/01/12 04/04/13 Unknown Rx PARoxetine (NF) [Paxil] 40 mg PO DAILY 12/01/12 04/04/13 Unknown History Ondansetron [Zofran] 4 mg PO Q8HR PRN #20 tablet 04/06/13 Unknown Rx oxyCODONE /ACETAMINOPHEN [Percocet 1 tab PO Q6HR PRN #20 tablet 06/09/13 Unk nown Rx 5/325 mg] HYDROcodone/APAP 5-325 [[place] 1 each PO Q6HR PRN #14 tablet 09/12/17 Unknown Rx 5/325] HYDROcodone/APAP 5-325 [[place] 1 each PO Q6HR PRN #10 tablet 05/15/20 Unknown Rx 5/325] HYDROcodone/APAP 5-325 [[place] 1 each PO Q6HR PRN #10 tablet 05/21/20 Unknown Rx 5/325] Active Meds: Active Medications Acetaminophen (Acetaminophen 325 Mg Tab) 650 mg PO Q4H PRN PRN Reason: Pain MILD(1-3)/Fever >100.5/BOLIVAR Acetaminophen (Acetaminophen 325 Mg Tab) 650 mg PO Q6H PRN PRN Reason: Pain, Mild (1-3) Aspirin (Aspirin Ec 325 Mg Tab) 325 mg PO QDAY JANEE Dextrose (Dextrose 50% In Water (25gm) 50 Ml Syringe) 50 ml IV Q30MIN PRN; Prot ocol PRN Reason: Hypoglycemia Dextrose (Dextrose 50% In Water (25gm) 50 Ml Syringe) 50 ml IV Q30MIN PRN; Protocol PRN Reason: Hypoglycemia Heparin Sodium (Porcine) (Heparin 5,000 Unit/1 Ml Vial) 5,000 unit SUB-Q Q8HR JANEE Insulin Human Lispro (Insulin Lispro 100 Unit/Ml) 0 unit SUB-Q ACHS JANEE; P rotocol Magnesium Hydroxide (Magnesium Hydroxide (Mom) Oral Liqd Udc) 30 ml PO Q4H PRN PRN Reason: Constipation Morphine Sulfate (Morphine 2 Mg/1 Ml Inj) 2 mg IV Q4H PRN PRN Reason: Pain, Moderate (4-6) Morphine Sulfate (Morphine 4 Mg/1 Ml Inj) 4 mg IV Q4H PRN PRN Reason: Pain , Severe (7-10) Morphine Sulfate (Morphine 4 Mg/1 Ml Inj) 2 mg IV Q5MIN PRN PRN Reason: Chest Pain unrelieved by NTG Nitroglycerin (Nitroglycerin 0.4 Mg Tab Subl) 0.4 mg SL Q5M PRN PRN Reason: Chest Pain Ondansetron HCl (Ondansetron 4 Mg/2 Ml Inj) 4 mg IV Q8H PRN PRN Reason: Nausea And Vomiting Sodium Chloride (Sodium Chloride 0.9% 10 Ml Flush Syringe) 10 ml IV BID JANEE Sodium Chloride (Sodium Chloride 0.9% 10 Ml Flush Syringe) 10 ml IV PRN PRN PRN Reason: LINE FLUSH Sodium Chloride (Sodium Chloride 0.9% 10 Ml Flush Syringe) 10 ml IV PRN PRN PRN Reason: LINE FLUSH Tramadol HCl (Tramadol 50 Mg Tab) 50 mg PO Q6H PRN PRN Reason: Pain, Moderate (4-6) Review of Systems Constitutional: no fever, no chills Ears, nose, mouth and throat: no nasal congestion, no sore throat Cardiovascular: chest pain, edema, no palpitations, no syncope Respiratory: shortness of breath, no cough Genitourinary Female: no pelvic pain, no flank pain, no urgency, no hematuria Musculoskeletal: no neck pain, no low back pain Integumentary: no rash, no pruritis Neurological: no headaches, no confusion Psychiatric: no anxiety, no depression Endocrine: no polydipsia, no polyuria, no nocturia Exam - Constitutional Vitals: Temp Pulse Resp BP Pulse Ox 98.9 F 103 H 20 190/85 95 02/08/21 23:13 02/09/21 01:00 02/09/21 01:00 02/09/21 01:00 02/09/21 01:00 General appearance: Present: no acute distress, well-nourished, obese - EENT Eyes: Present: PERRL, EOM intact. Absent: scleral icterus ENT: hearing intact, clear oral mucosa, dentition normal - Neck Neck: Present: supple, normal ROM - Respiratory Respiratory effort: normal Respiratory: bilateral: CTA - Cardiovascular Rhythm: regular Heart Sounds: Present: S1 & S2. Absent: gallop, systolic murmur, diastolic murmur, rub, click - Extremities Extremities: no ischemia, pulses intact, pulses symmetrical, normal temperature, normal color, Full ROM Extremity abnormal: edema (1+ bilateral lower extremity edema) Peripheral Pulses: within normal limits - Abdominal General gastrointestinal: Present: soft, non-tender, non-distended, normal bowel sounds. Absent: mass - Integumentary Integumentary: Present: clear, warm, dry - Musculoskeletal Musculoskeletal: strength equal bilaterally - Psychiatric Psychiatric: appropriate mood/affect, intact judgment & insight, memory intact, cooperative - Neurologic Neurologic: CNII-XII intact, no focal deficits, moves all extremities HEART Score - HEART Score History: Moderately suspicious EKG: Non-specific Age: > 65 Risk factors: > 3 risk factors or hx of atherosclerotic disease Troponin: Troponin T < 0.010 ng/mL (0.00-0.029) 02/08/21 22:36 Troponin: < normal limit HEART Score: 6 Results - Labs CBC & Chem 7: 02/08/21 22:36 02/08/21 22:36 Labs: Abnormal lab results 02/08/21 02/08/21 02/08/21 Range/Units 22:36 22:36 22:36 WBC 11.4 H (4.5-11.0) K/mm3 RDW 15.3 H (13.2-15.2) % [place] % (Auto) 7.4 H (0.0-7.3) % Seg Neutrophils # 7.8 H (1.8-7.7) K/mm3 INR 0.82 L (0.87-1.13) Potassium 3.0 L (3.6-5.0) mmol/L Glucose 340 H (65-100) mg/dL Alkaline Phosphatase 147 H (35-129) units/L Albumin 3.7 L (3.9-5) g/dL Assessment and Plan - Patient Problems (1) Acute chest pain Current Visit: Yes Status: Acute Plan to address problem: Patient admitted and placed on telemetry. We placed on daily aspirin, sublingual nitroglycerin and IV morphine as needed for chest pain. We request cardiology evaluation and recommendations. (2) Hypokalemia Current Visit: No Status: Acute Plan to address problem: Potassium will be repleted and will monitor chemistry. (3) Diabetes mellitus Current Visit: Yes Status: Acute Plan to address problem: Placed on sliding scale. We will monitor Accu-Cheks closely. (4) Hypertension Current Visit: Yes Status: Acute Plan to address problem: We will resume routine home medications and monitor vital signs closely. (5) DVT prophylaxis Current Visit: Yes Status: Acute Plan to address problem: Patient placed on subcutaneous heparin. (6) Full code status Current Visit: Yes Status: Acute Plan to address problem: Patient is full code.
--- NOTE | 2021-02-09 02:00 | Cat Scan Report ---
CTA CHEST WITH CONTRAST INDICATION / CLINICAL INFORMATION: Patient complains of chest pains with S.O.B.. TECHNIQUE: Axial CT images were obtained through the chest after injection of 100 mL Omnipaque 350 IV contrast. 3 plane MIP and/or 3D reconstructions were produced. All CT scans at this location are per formed using CT dose reduction for ALARA by means of automated exposure control. COMPARISON: None available. FINDINGS: PULMONARY ARTERIES: No pulmonary emboli. THORACIC AORTA: No significant abnormality. HEART: No significant abnormality. CORONARY ARTERY CALCIFICATION: None. MEDIASTINUM / FATOU: No significant abnormality. PLEURA: No pleural effusion. No pneumothorax. LUNGS: No acute air space or interstitial disease. ADDITIONAL FINDINGS: None. UPPER ABDOMEN: No acute findings. SKELETAL STRUCTURES: No significant osseous abnormality. IMPRESSION: 1. No CT evidence for pulmonary embolism. 2. No acute findings. Signer Name: Lissa Gonzalez MD Signed: 02/09/2021 1:56 AM Workstation Name: [id number]
[2021-02-09 04:25] LABS: Bilirubin,Urine NEG (Negative); Blood,Urine NEG (Negative); Color,Urine Straw (Yellow); Protein,Urine <15 mg/dL mg/dL (Negative); Urobilinogen,Urine < 2.0 mg/dL (<2.0)
[2021-02-09 04:53] VITALS: BP 156/76
[2021-02-09] MEDS ORDERED: POTASSIUM CHLORIDE 10 MEQ 10 MEQ/100 ML BAG IV ONE (05:22)
[2021-02-09] MEDS ORDERED: POTASSIUM CHLORIDE ER 20 MEQ TAB PO ONE (05:22)
[2021-02-09] MEDS ORDERED: HEPARIN 5,000 UNIT/1 ML VIAL SUB-Q SCH (06:00)
[2021-02-09 06:16] LABS: Basophils % (Auto) 0.3 % (0.0-1.8); Eosinophils # (Auto) 0.2 K/mm3 (0.0-0.4); Eosinophils % (Auto) 2.1 % (0.0-4.3); Hematocrit 35.6 % (30.3-42.9); Hemoglobin 11.6 gm/dl (10.1-14.3); Lymphocytes % (Auto) 31.4 % (13.4-35.0); Mean Corpuscular HGB Conc 33 % (30-34); Mean Corpuscular Volume 85 fl (79-97); Monocytes # (Auto) 0.8 K/mm3 (0.0-0.8); Monocytes % (Auto) 8.1 % (0.0-7.3); Platelet Count 243 K/mm3 (140-440); Red Blood Count 4.21 M/mm3 (3.65-5.03); Red Cell Distribution Width 14.9 % (13.2-15.2)
[2021-02-09 06:25] LABS: Blood Urea Nitrogen 7 mg/dL (7-17); Calcium 8.5 mg/dL (8.4-10.2); Hemolysis Index 7
[2021-02-09 06:26] LABS: BUN/Creatinine Ratio 18
[2021-02-09 06:28] LABS: Chol/HDL Ratio 4.16 %
[2021-02-09] MEDS ORDERED: REGADENOSON 0.4 MG/5 ML INJ IV ONE (07:05)
[2021-02-09] MEDS ORDERED: INSULIN LISPRO 100 UNIT/ML SUB-Q SCH (07:30)
--- NOTE | 2021-02-09 11:59 | Electrocardiograph Report ---
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
[2021-02-10] MEDS ORDERED: ASPIRIN EC 325 MG TAB PO SCH (10:00)
== END 2021-02-09 08:09 | disposition left against medical advice (07) ==
LOC: ED 22:15 → 4A 02-09 00:03 → UNDODISOB 02-09 07:15 → 4A 02-09 08:07
PROVIDERS: ADMIT Internal Medicine Geriatric Medicine; ATTEND Internal Medicine
DX: R07.89 Other chest pain (principal); E87.6 Hypokalemia; I10 Essential (primary) hypertension; E11.9 Type 2 diabetes mellitus without complications; I25.2 Old myocardial infarction; I25.10 Atherosclerotic heart disease of native coronary artery without angina pectoris; M19.90 Unspecified osteoarthritis, unspecified site; Z85.038 Personal history of other malignant neoplasm of large intestine; Z85.3 Personal history of malignant neoplasm of breast; Z79.899 Other long term (current) drug therapy; Z98.890 Other specified postprocedural states; Z79.82 Long term (current) use of aspirin
CPT/HCPCS: 36415; 71045; 71275; 80048; 80061; 80076; 81001; 83690; 83880; 84484; 85025; 85610; 85730; 93005; 96374; 96375; 96376; 99285; G0378; J2270; J2405; Q9967; J1815

== ENCOUNTER 2021-04-29 15:36 | Inpatient (IN) | payer MEDICARE ==
[2021-04-29] MEDS ORDERED: NITROGLYCERIN 0.4 MG TAB SUBL SL ONE (16:45)
--- NOTE | 2021-04-29 16:48 | Emergency Department Report ---
ED General Adult HPI - General Chief complaint: Chest Pain Stated complaint: chest pain PUI?: No Time Seen by Provider: 04/29/21 16:42 Source: patient, EMS (Verbal report received from emergency medical services. [facility] subsequently), RN notes reviewed, old records reviewed Mode of arrival: Stretcher Limitations: No Limitations - History of Present Illness Initial comments: The patient was evaluated in the emergency department for symptoms described in the history of present illness. He/she was evaluated in the context of the global COVID-19 pandemic, which necessitated consideration that the patient might be at risk for infection with the virus that causes COVID-19. Institutional protocols and algorithms that pertain to the evaluation of patients at risk for COVID-19 are in a state of rapid change based on informat ion released by regulatory bodies including the CDC and federal and state organizations. These policies and algorithms were followed during the patient's care in the emergency department. Please note that these policies, procedures and recommendations changed on a rapid basis. The patient is a 80-year-old female. She reports a history of prior CA 15 years ago. She presents to the ER today with a complaint of central, left-sided and right-sided chest pain. There is mild nausea. There is no vomiting. There is no significant shortness of breath. Patient took aspirin and nitroglycerin ear lier on today which improved her symptoms. Her pain today feels similar to prior CA. No recent cardiac stress test. No travel, surgery, immobilization, DVT/PE risk factors. Patient was admitted to this hospital January 2021 for similar symptoms. She had a CT scan of the chest which was negative for PE. The patient has not had a cardiac risk ratification that she is aware of. -: Sudden Location: chest Radiation: other (Left upper extremity) Severity scale (0 -10): 7 Quality: aching Consistency: intermittent Improves with: none Worsens with: none - Related Data Home Medications Medication Instructions Recorded Confirmed Last Taken PARoxetine (NF) [Paxil] 40 mg PO DAILY 12/01/12 04/04/13 Unknown Previous Rx's Medication Instructions Recorded Last Taken Type Naproxen Sodium (Nf) [Anaprox DS] 550 mg PO BID PRN #20 tablet 12/01/12 Unknown Rx Ondansetron [Zofran] 4 mg PO Q8HR PRN #20 tablet 04/06/13 Unknown Rx oxyCODONE /ACETAMINOPHEN [Percocet 1 tab PO Q6HR PRN #20 tablet 06/09/13 Unknown Rx 5/325 mg] HYDROcodone/APAP 5-325 [[place] 1 each PO Q6HR PRN #14 tablet 09/12/17 Unknown Rx 5/325] HYDROcodone/APAP 5-325 [[place] 1 each PO Q6HR PRN #10 tablet 05/15/20 Unknown Rx 5/325] HYDROcodone/APAP 5-325 [[place] 1 each PO Q6HR PRN #10 tablet 05/21/20 Unknown Rx 5/325] Allergies Allergy/AdvReac Type Severity Reaction Status Date / Time meperidine HCl [From Demerol] Allergy Headache Verified 04/29/21 15:41 ED Review of Systems ROS: Stated complaint: chest pain Other details as noted in HPI Constitutional: malaise. denies: fever Eyes: denies: eye discharge ENT: denies: congestion Respiratory: denies: wheezing Cardiovascular: chest pain, edema (Lower extremity edema) Gastrointestinal: denies: abdominal pain, vomiting, hematemesis, melena, hematochezia Musculoskeletal: denies: back pain Neurological: denies: weakness Hematological/Lymphatic: denies: easy bleeding ED Past Medical Hx - Past Medical History Previous Medical History?: Yes Hx Hypertension: Yes Hx Heart Attack/AMI: Yes Hx Diabetes: Yes Hx Arthritis: Yes Additional medical history: colon ca, breast ca in remission - Surgical History Additional Surgical History: L lumpectomy - Social History Smoking Status: Never Smoker Substance Use Type: None - Medications Home Medications: Home Medications Medication Instructions Recorded Confirmed Last Taken Type Naproxen Sodium (Nf) [Anaprox DS] 550 mg PO BID PRN #20 tablet 12/01/12 04/04/13 Unknown Rx PARoxetine (NF) [Paxil] 40 mg PO DAILY 12/01/12 04/04/13 Unknown History Ondansetron [Zofran] 4 mg PO Q8HR PRN #20 tablet 04/06/13 Unknown Rx oxyCODONE /ACETAMINOPHEN [Percocet 1 tab PO Q6HR PRN #20 tablet 06/09/13 Unknown Rx 5/325 mg] HYDROcodone/APAP 5-325 [[place] 1 each PO Q6HR PRN #14 tablet 09/12/17 Unknown Rx 5/325] HYDROcodone/APAP 5-325 [[place] 1 each PO Q6HR PRN #10 tablet 05/15/20 Unknown Rx 5/325] HYDROcodone/APAP 5-325 [[place] 1 each PO Q6HR PRN #10 tablet 05/21/20 Unknown Rx 5/325] ED Physical Exam - General Limitations: No Limitations General appearance: alert, in no apparent distress, obese - Head Head exam: Present: atraumatic, normocephalic - Eye Eye exam: Present: normal appearance, EOMI. Absent: nystagmus - ENT ENT exam: Present: normal exam, normal orophraynx, mucous membranes moist, normal external ear exam - Neck Neck exam: Present: normal inspection, full ROM. Absent: tenderness, meningismus - Respiratory Respiratory exam: Present: decreased breath sounds. Absent: respiratory distress, wheezes, rales, rhonchi, stridor - Cardiovascular Cardiovascular Exam: Present: regular rate, normal rhythm, normal heart sounds. Absent: bradycardia, tachycardia, irregular rhythm, systolic murmur, diastolic murmur, rubs, gallop - GI/Abdominal GI/Abdominal exam: Present: soft. Absent: distended, tenderness, guarding, rebound, rigid, pulsatile mass - Extremities Exam Extremities exam: Present: normal inspection, full ROM, pedal edema (2+ edema in the bilateral lower extremities), other (2+ pulses noted in the bilateral upper and lower extremities. There is no palpable cord. negative Homans sign. Muscular compartments are soft. The pelvis is stable.). Absent: calf tenderness - Back Exam Back exam: Present: normal inspection, full ROM. Absent: tenderness, CVA tenderness (R), CVA tenderness (L), paraspinal tenderness, vertebral tenderness - Neurological Exam Neurological exam: Present: alert, other (No facial droop. Tongue midline. Extraocular movements intact bilaterally. Facial sensation intact to light touch in V1, V2, V3 distribution bilaterally. 5 and a 5 strength in 4 extremities. Sensation intact to light touch in 4 extremities.). Absent: motor sensory deficit - Psychiatric Psychiatric exam: Present: normal affect, normal mood - Skin Skin exam: Present: warm, dry, intact, normal color. Absent: rash ED Course Vital Signs 04/29/21 04/29/21 15:38 18:34 Temperature 99.1 F Pulse Rate 87 78 Respiratory 18 Rate Blood Pressure 187/90 Blood Pressure 175/88 [Left] O2 Sat by Pulse 100 Oximetry - Reevaluation(s) Reevaluation #1: 04/29/21 19:01 Differential diagnosis, including but not limited to: GERD, gastritis, hiatal hernia, pneumonia, congestive heart failure, costochondritis, acute coronary syndrome Assessment and plan: 80-year-old female, who is not currently tachycardic, tachypneic or hypoxic, who denies DVT and pulmonary embolism risk factors, who is low risk by Wells criteria for pulmonary embolism, moderate risk for major adverse cardiac event as per heart score, presenting with acute chest pain. Patient had a CT scan of the chest a few months ago which is negative for acute findings. Her EKG is unchanged from prior. She has lower extremity edema, but no crackles or rales. Chest x-ray reviewed and appreciated. She has received aspirin and nitroglycerin today. We will treat her with low-dose Lasix, as needed pain medication, administer antihypertensive medication, I recommend admission to the medical service for a cardiac risk stratification. I discussed this with the patient. She is agreeable to this plan of care. Hospital physician is paged to arrange admission. 04/29/21 21:43 DR Quintanilla to admit to [facility] ED Medical Decision Making - Lab Data Result diagrams: 04/29/21 17:14 04/29/21 17:14 Vital Signs 04/29/21 04/29/21 15:38 18:34 Temperature 99.1 F Pulse Rate 87 78 Respiratory 18 Rate Blood Pressure 187/90 Blood Pressure 175/88 [Left] O2 Sat by Pulse 100 Oximetry Lab Results 04/29/21 04/29/21 04/29/21 Range/Units 17:14 17:14 17:14 WBC 8.5 (4.5-11.0) K/mm3 RBC 4.37 (3.65-5.03) M/mm3 Hgb 11.6 (10.1-14.3) gm/dl Hct 35.9 (30.3-42.9) % MCV 82 (79-97) fl MCH 27 L (28-32) pg MCHC 32 (30-34) % RDW 14.8 (13.2-15.2) % Plt Count 266 (140-440) K/mm3 Lymph % (Auto) 28.8 (13.4-35.0) % [place] % (Auto) 10.0 H (0.0-7.3) % Eos % (Auto) 2.3 (0.0-4.3) % Baso % (Auto) 0.4 (0.0-1.8) % Lymph # (Auto) 2.5 (1.2-5.4) K/mm3 [place] # (Auto) 0.9 H (0.0-0.8) K/mm3 Eos # (Auto) 0.2 (0.0-0.4) K/mm3 Baso # (Auto) 0.0 (0.0-0.1) K/mm3 Seg Neutrophils % 58.5 (40.0-70.0) % Seg Neutrophils # 5.0 (1.8-7.7) K/mm3 PT 13.1 (12.2-14.9) Sec. INR 0.89 (0.87-1.13) APTT 30.1 (24.2-36.6) Sec. Sodium 138 (137-145) mmol/L Potassium 3.5 L (3.6-5.0) mmol/L Chloride 100.6 (98-107) mmol/L Carbon Dioxide 33 H (22-30) mmol/L Anion Gap 8 mmol/L BUN 12 (7-17) mg/dL Creatinine 0.7 (0.6-1.2) mg/dL Estimated GFR > 60 ml/min BUN/Creatinine Ratio 17 % Glucose 152 H (65-100) mg/dL Calcium 8.9 (8.4-10.2) mg/dL Magnesium (1.7-2.3) mg/dL Total Bilirubin 0.30 (0.1-1.2) mg/dL AST 15 (5-40) units/L ALT 11 (7-56) units/L Alkaline Phosphatase 111 (35-129) units/L Total Creatine Kinase (30-135) units/L Troponin T < 0.010 (0.00-0.029) ng/mL Total Protein 6.4 (6.3-8.2) g/dL Albumin 3.6 L (3.9-5) g/dL Albumin/Globulin Ratio 1.3 % 04/29/21 Range/Units 17:14 WBC (4.5-11.0) K/mm3 RBC (3.65-5.03) M/mm3 Hgb (10.1-14.3) gm/dl Hct (30.3-42.9) % MCV (79-97) fl MCH (28-32) pg MCHC (30-34) % RDW (13.2-15.2) % Plt Count (140-440) K/mm3 Lymph % (Auto) (13.4-35.0) % [place] % (Auto) (0.0-7.3) % Eos % (Auto) (0.0-4.3) % Baso % (Auto) (0.0-1.8) % Lymph # (Auto) (1.2-5.4) K/mm3 [place] # (Auto) (0.0-0.8) K/mm3 Eos # (Auto) (0.0-0.4) K/mm3 Baso # (Auto) (0.0-0.1) K/mm3 Seg Neutrophils % (40.0-70.0) % Seg Neutrophils # (1.8-7.7) K/mm3 PT (12.2-14.9) Sec. INR (0.87-1.13) APTT (24.2-36.6) Sec. Sodium (137-145) mmol/L Potassium (3.6-5.0) mmol/L Chloride (98-107) mmol/L Carbon Dioxide (22-30) mmol/L Anion Gap mmol/L BUN (7-17) mg/dL Creatinine (0.6-1.2) mg/dL Estimated GFR ml/min BUN/Creatinine Ratio % Glucose (65-100) mg/dL Calcium (8.4-10.2) mg/dL Magnesium 1.90 (1.7-2.3) mg/dL Total Bilirubin (0.1-1.2) mg/dL AST (5-40) units/L ALT (7-56) units/L Alkaline Phosphatase (35-129) units/L Total Creatine Kinase 49 (30-135) units/L Troponin T (0.00-0.029) ng/mL Total Protein (6.3-8.2) g/dL Albumin (3.9-5) g/dL Albumin/Globulin Ratio % - EKG Data -: EKG Interpreted by Nv EKG shows normal: sinus rhythm Rate: normal - EKG Data Interpretation: unchanged when compared t (This is unchanged from prior EKG from January 2021) 04/29/21 18:57 The EKG is interpreted at 17: 41 Sinus rhythm, rate 79 bpm. Left axis deviation, left anterior fascicular block, the QTC is 4 9 4 ms, and there is motion artifact. This is an abnormal EKG. This is not a STEMI. - Radiology Data Radiology results: pending, report reviewed, image reviewed CHEST PA AND LATERAL VIEWS INDICATION: Chest Pain. COMPARISON: 02/08/2021 FINDINGS: Support devices: None. Heart: Upper limits of normal. Lungs/Pleura: Mild diffuse interstitial opacities are noted. No pleural effusion or consolidation. IMPRESSION: 1. Mild interstitial opacities could be seen in the setting of mild pulmonary edema. However, this may be artifactual related to prominent pulmonary vasculature given the underpenetration/patient body habitus. Signer Name: Pa Sims MD Signed: 04/29/2021 4:26 PM Workstation Name: [id number] CTA CHEST WITH CONTRAST INDICATION / CLINICAL INFORMATION: Patient complains of chest pains with S.O.B.. TECHNIQUE: Axial CT images were obtained through the chest after injection of 100 mL Omnipaque 350 IV contrast. 3 plane MIP and/or 3D reconstructions were produced. All CT scans at this location are performed using CT dose reduction for ALARA by means of automated exposure control. COMPARISON: None available. FINDINGS: PULMONARY ARTERIES: No pulmonary emboli. THORACIC AORTA: No significant abnormality. HEART: No significant abnormality. CORONARY ARTERY CALCIFICATION: None. MEDIASTINUM / FATOU: No significant abnormality. PLEURA: No pleural effusion. No pneumothorax. LUNGS: No acute air space or interstitial disease. ADDITIONAL FINDINGS: None. UPPER ABDOMEN: No acute findings. SKELETAL STRUCTURES: No significant osseous abnormality. IMPRESSION: 1. No CT evidence for pulmonary embolism. 2. No acute findings. Signer Name: Lissa Gonzalez MD Signed: 02/09/2021 12:56 AM Workstation Name: [id number] Critical care attestation.: If time is entered above; I have spent that time in minutes in the direct care of this critically ill patient, excluding procedure time. ED Disposition Clinical Impression: Acute chest pain, Hypertension, Swelling of lower extremity Disposition: 09 ADMITTED INPATIENT Is pt being admited?: Yes Does the pt Need Aspirin: No (Given by EMS) Condition: Good Instructions: Chest Pain (ED), Hypertension (ED) Referrals: PRIMARY CARE,MD [Primary Care Provider] - 3-5 Days Heart Score - HEART Score History: Slightly suspicious EKG: Non-specific Age: > 65 Risk factors: > 3 risk factors or hx of atherosclerotic disease Troponin: < normal limit HEART Score: 5 - EKG Read Time Time EKG Completed: 17:41 EKG Read Time: 17:41 - Critical Actions Critical Actions: 4-6 pts:12-16.6% risk of adverse cardiac event. Should be admitted
[2021-04-29] MEDS ORDERED: PANTOPRAZOLE 40 MG INJ IV ONE (17:20)
[2021-04-29] MEDS ORDERED: ONDANSETRON 4 MG/2 ML INJ IV ONE (17:20)
[2021-04-29] MEDS ORDERED: MORPHINE 4 MG/1 ML INJ IV ONE (17:20)
--- NOTE | 2021-04-29 17:30 | XRay Report ---
CHEST PA AND LATERAL VIEWS INDICATION: Chest Pain. COMPARISON: 02/08/2021 FINDINGS: Support devices: None. Heart: Upper limits of normal. Lungs/Pleura: Mild diffuse interstitial opacities are noted. No pleural effusion or consolidation. IMPRESSION: 1. Mild interstitial opacities could be seen in the setting of mild pulmonary edema. However, this ma y be artifactual related to prominent pulmonary vasculature given the underpenetration/patient body h abitus. Signer Name: Pa Sims MD Signed: 04/29/2021 5:26 PM Workstation Name: [id number]
[2021-04-29 17:37] LABS: Basophils % (Auto) 0.4 % (0.0-1.8); Eosinophils # (Auto) 0.2 K/mm3 (0.0-0.4); Eosinophils % (Auto) 2.3 % (0.0-4.3); Hematocrit 35.9 % (30.3-42.9); Hemoglobin 11.6 gm/dl (10.1-14.3); Lymphocytes # (Auto) 2.5 K/mm3 (1.2-5.4); Lymphocytes % (Auto) 28.8 % (13.4-35.0); Mean Corpuscular HGB Conc 32 % (30-34); Mean Corpuscular Volume 82 fl (79-97); Monocytes # (Auto) 0.9 K/mm3 (0.0-0.8); Platelet Count 266 K/mm3 (140-440); Red Blood Count 4.37 M/mm3 (3.65-5.03); Red Cell Distribution Width 14.8 % (13.2-15.2)
[2021-04-29 17:54] LABS: INR 0.89 (0.87-1.13); Partial Thromboplastin Time 30.1 Sec. (24.2-36.6)
[2021-04-29 18:01] LABS: Alanine Aminotransferase 11 units/L (7-56); Albumin 3.6 g/dL (3.9-5); Blood Urea Nitrogen 12 mg/dL (7-17); Calcium 8.9 mg/dL (8.4-10.2); Hemolysis Index 6
[2021-04-29 18:08] LABS: BUN/Creatinine Ratio 17
[2021-04-29] MEDS ORDERED: FUROSEMIDE 20 MG/2 ML INJ IV ONE (19:03)
[2021-04-29] MEDS ORDERED: POTASSIUM CHLORIDE ER 20 MEQ TAB PO ONE ×2 (19:03→23:38)
[2021-04-29] MEDS ORDERED: amLODIPine 5 MG TAB PO ONE (19:03)
[2021-04-29] MEDS ORDERED: DEXTROSE 50% IN WATER (25GM) 50 ML SYRINGE IV PRN (22:09)
[2021-04-29] MEDS ORDERED: MORPHINE 4 MG/1 ML INJ IV PRN (22:09)
[2021-04-29] MEDS ORDERED: NITROGLYCERIN 0.4 MG TAB SUBL SL PRN (22:09)
[2021-04-29] MEDS ORDERED: DEXTROSE 10% *Hypoglycemia IV PRN (22:23)
--- NOTE | 2021-04-29 22:23 | History and Physical Report ---
History of Present Illness Date of examination: 04/29/21 Date of admission: 04/29/21 Chief complaint: Chest pain History of present illness: 80-year-old female with known history of hypertension, diabetes mellitus, congestive heart failure coronary artery disease was brought to the emergency room because of central, left-sided and right-sided chest pain. Chest pain is aching intermittent 7/10 in the left side of the chest. Patient complains of nausea, no vomiting. There is no significant shortness of breath. Patient took aspirin and nitroglycerin earlier on today which improved her symptoms. Her pain today feels similar to prior SD. No recent cardiac stress test. In the emergency room initial cardiac enzyme is negative, troponin is 0.010, chest x-ray showed mild interstitial opacities could be seen in the setting of mild pulmonary edema. So going to admit the patient we will put the patient on chest pain pathway we ordered a Lexiscan Past History Past Medical History: acute SD, arthritis, diabetes Medications and Allergies Allergies Allergy/AdvReac Type Severity Reaction Status Date / Time meperidine HCl [From Demerol] Allergy Headache Verified 04/29/21 15:41 Home Medications Medication Instructions Recorded Confirmed Last Taken Type Naproxen Sodium (Nf) [Anaprox DS] 550 mg PO BID PRN #20 tablet 12/01/12 04/04/13 Unknown Rx PARoxetine (NF) [Paxil] 40 mg PO DAILY 12/01/12 04/04/13 Unknown History Ondansetron [Zofran] 4 mg PO Q8HR PRN #20 tablet 04/06/13 Unknown Rx oxyCODONE /ACETAMINOPHEN [Percocet 1 tab PO Q6HR PRN #20 tablet 06/09/13 Unknown Rx 5/325 mg] HYDROcodone/APAP 5-325 [[place] 1 each PO Q6HR PRN #14 tablet 09/12/17 Unknown Rx 5/325] HYDROcodone/APAP 5-325 [[place] 1 each PO Q6HR PRN #10 tablet 05/15/20 Unknown Rx 5/325] HYDROcodone/APAP 5-325 [[place] 1 each PO Q6HR PRN #10 tablet 05/21/20 Unknown Rx 5/325] Review of Systems All systems: negative Cardiovascular: chest pain, edema, shortness of breath, dyspnea on exertion Respiratory: shortness of breath, dyspnea on exertion Exam - Constitutional Vitals: Temp Pulse Resp BP Pulse Ox 98.9 F 89 18 150/85 100 04/29/21 20:25 04/29/21 20:25 04/29/21 20:25 04/29/21 20:25 04/29/21 20:39 General appearance: Present: no acute distress, well-nourished - EENT Eyes: Present: PERRL ENT: hearing intact, clear oral mucosa - Neck Neck: Present: supple, normal ROM - Respiratory Respiratory effort: normal Respiratory: bilateral: rales - Cardiovascular Heart Sounds: Present: S1 & S2. Absent: rub, click - Extremities Extremities: pulses symmetrical, No edema Peripheral Pulses: within normal limits - Abdominal General gastrointestinal: Present: soft, non-tender, non-distended, normal bowel sounds Female genitourinary: Present: normal - Integumentary Integumentary: Present: clear, warm, dry - Musculoskeletal Musculoskeletal: gait normal, strength equal bilaterally - Psychiatric Psychiatric: appropriate mood/affect, intact judgment & insight - Neurologic Neurologic: CNII-XII intact, moves all extremities HEART Score - HEART Score EKG: Non-specific Age: > 65 Risk factors: > 3 risk factors or hx of atherosclerotic disease Troponin: Troponin T < 0.010 ng/mL (0.00-0.029) 04/29/21 17:14 Troponin: < normal limit - Critical Actions Critical Actions: 4-6 pts:12-16.6% risk of adverse cardiac event. Should be admitted Results - Labs CBC & Chem 7: 04/29/21 17:14 04/29/21 17:14 Labs: Laboratory Last Values WBC 8.5 K/mm3 (4.5-11.0) 04/29/21 17:14 RBC 4.37 M/mm3 (3.65-5.03) 04/29/21 17:14 Hgb 11.6 gm/dl (10.1-14.3) 04/29/21 17:14 Hct 35.9 % (30.3-42.9) 04/29/21 17:14 MCV 82 fl (79-97) 04/29/21 17:14 MCH 27 pg (28-32) L 04/29/21 17:14 MCHC 32 % (30-34) 04/29/21 17:14 RDW 14.8 % (13.2-15.2) 04/29/21 17:14 Plt Count 266 K/mm3 (140-440) 04/29/21 17:14 Lymph % (Auto) 28.8 % (13.4-35.0) 04/29/21 17:14 [place] % (Auto) 10.0 % (0.0-7.3) H 04/29/21 17:14 Eos % (Auto) 2.3 % (0.0-4.3) 04/29/21 17:14 Baso % (Auto) 0.4 % (0.0-1.8) 04/29/21 17:14 Lymph # (Auto) 2.5 K/mm3 (1.2-5.4) 04/29/21 17:14 [place] # (Auto) 0.9 K/mm3 (0.0-0.8) H 04/29/21 17:14 Eos # (Auto) 0.2 K/mm3 (0.0-0.4) 04/29/21 17:14 Baso # (Auto) 0.0 K/mm3 (0.0-0.1) 04/29/21 17:14 Seg Neutrophils % 58.5 % (40.0-70.0) 04/29/21 17:14 Seg Neutrophils # 5.0 K/mm3 (1.8-7.7) 04/29/21 17:14 PT 13.1 Sec. (12.2-14.9) 04/29/21 17:14 INR 0.89 (0.87-1.13) 04/29/21 17:14 APTT 30.1 Sec. (24.2-36.6) 04/29/21 17:14 Sodium 138 mmol/L (137-145) 04/29/21 17:14 Potassium 3.5 mmol/L (3.6-5.0) L 04/29/21 17:14 Chloride 100.6 mmol/L (98-107) 04/29/21 17:14 Carbon Dioxide 33 mmol/L (22-30) H 04/29/21 17:14 Anion Gap 8 mmol/L 04/29/21 17:14 BUN 12 mg/dL (7-17) 04/29/21 17:14 Creatinine 0.7 mg/dL (0.6-1.2) 04/29/21 17:14 Estimated GFR > 60 ml/min 04/29/21 17:14 BUN/Creatinine Ratio 17 % 04/29/21 17:14 Glucose 152 mg/dL (65-100) H 04/29/21 17:14 Calcium 8.9 mg/dL (8.4-10.2) 04/29/21 17:14 Magnesium 1.90 mg/dL (1.7-2.3) 04/29/21 17:14 Total Bilirubin 0.30 mg/dL (0.1-1.2) 04/29/21 17:14 AST 15 units/L (5-40) 04/29/21 17:14 ALT 11 units/L (7-56) 04/29/21 17:14 Alkaline Phosphatase 111 units/L (35-129) 04/29/21 17:14 Total Creatine Kinase 49 units/L (30-135) 04/29/21 17:14 Troponin T < 0.010 ng/mL (0.00-0.029) 04/29/21 17:14 Total Protein 6.4 g/dL (6.3-8.2) 04/29/21 17:14 Albumin 3.6 g/dL (3.9-5) L 04/29/21 17:14 Albumin/Globulin Ratio 1.3 % 04/29/21 17:14 - Imaging and Cardiology Chest x-ray: report reviewed Assessment and Plan VTE prophylaxis?: Chemical Plan of care discussed with patient/family: Yes - Patient Problems (1) Acute coronary syndrome Current Visit: Yes Status: Acute Plan to address problem: Admit the patient to the medical telemetry. Aspirin 325 mg p.o. daily. Lipitor 40 mg p.o. daily. Nitroglycerin as needed. Serial cardiac enzymes. Lexiscan. Consult cardiology if needed (2) CHF (congestive heart failure) Current Visit: Yes Status: Acute Plan to address problem: Fluid restriction. Maintain input output .Lasix 40 mg IV daily. Daily weight. Lexiscan (3) CAD (coronary artery disease) Current Visit: Yes Status: Acute Plan to address problem: Aspirin 325 mg p.o. daily. Lipitor 40 mg p.o. daily. Nitroglycerin as needed. Serial cardiac enzymes. Lexiscan. Consult cardiology if needed (4) Hypertension Current Visit: Yes Status: Acute Plan to address problem: Hydralazine 10 mg IV every 6 hours as needed. We will continue the home medication (5) Diabetes mellitus Current Visit: No Status: Acute Plan to address problem: Humalog sliding scale Accu-Chek every 6 hours moderate dose coverage. Diabetic education. Repeat BMP in the morning (6) DVT prophylaxis Current Visit: No Status: Acute Plan to address problem: Heparin 5000 units subcu every 8 hours for DVT prophylaxis. Pepcid 20 mg p.o. twice daily for GI prophylaxis. Patient is a full code
[2021-04-29 23:02] LABS: Basophils % (Auto) 0.4 % (0.0-1.8); Eosinophils # (Auto) 0.2 K/mm3 (0.0-0.4); Eosinophils % (Auto) 2.5 % (0.0-4.3); Hemoglobin 10.9 gm/dl (10.1-14.3); Lymphocytes # (Auto) 2.2 K/mm3 (1.2-5.4); Lymphocytes % (Auto) 27.6 % (13.4-35.0); Mean Corpuscular HGB Conc 32 % (30-34); Mean Corpuscular Volume 83 fl (79-97); Monocytes # (Auto) 0.8 K/mm3 (0.0-0.8); Monocytes % (Auto) 10.3 % (0.0-7.3); Platelet Count 257 K/mm3 (140-440); Red Blood Count 4.11 M/mm3 (3.65-5.03); Red Cell Distribution Width 14.7 % (13.2-15.2)
[2021-04-29 23:24] LABS: Blood Urea Nitrogen 13 mg/dL (7-17); Calcium 8.2 mg/dL (8.4-10.2); Hemolysis Index 9
[2021-04-29 23:36] LABS: BUN/Creatinine Ratio 22
[2021-04-29] MEDS ORDERED: FUROSEMIDE 20 MG/2 ML INJ ONE (23:38)
[2021-04-29] MEDS ORDERED: amLODIPine 5 MG TAB ONE (23:38)
[2021-04-30] MEDS: INSULIN LISPRO 100 UNIT/ML SUB-Q SCH ×4 (01:45→17:09)
[2021-04-30] MEDS: traMADol 50 MG TAB PO PRN ×2 (01:46→05:42)
[2021-04-30] MEDS: HEPARIN 5,000 UNIT/1 ML VIAL SUB-Q SCH ×3 (05:02→20:59)
[2021-04-30] MEDS: ONDANSETRON 4 MG/2 ML INJ IV PRN (05:42)
[2021-04-30] MEDS: ACETAMINOPHEN 325 MG TAB PO PRN ×2 (08:15→21:03)
--- NOTE | 2021-04-30 09:09 | Electrocardiograph Report ---
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
--- NOTE | 2021-04-30 09:09 | Electrocardiograph Report ---
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
[2021-04-30] MEDS ORDERED: PAROXETINE 30 MG PO SCH (10:00)
[2021-04-30] MEDS: MORPHINE 2 MG/1 ML INJ IV PRN ×2 (10:27→17:09)
[2021-04-30] MEDS: ASPIRIN EC 325 MG TAB PO SCH (10:27)
[2021-04-30] MEDS: PARoxetine 20 MG TAB PO SCH (10:27)
[2021-04-30] MEDS: FUROSEMIDE 40 MG/4 ML INJ IV SCH (10:27)
[2021-04-30] MEDS: PANTOPRAZOLE 40 MG TAB PO SCH (10:27)
[2021-04-30] MEDS: hydrALAZINE 20 MG/1 ML INJ IV PRN ×2 (14:01→23:26)
[2021-04-30] MEDS ORDERED: guaiFENesin 100 MG/5 ML ORAL LIQD PO PRN (20:18)
--- NOTE | 2021-04-30 20:54 | Progress Note ---
Assessment and Plan Assessment and plan: (1) Acute coronary syndrome/chest pain Current Visit: Yes Status: Acute On telemetry. Aspirin 325 mg p.o. daily. Lipitor 40 mg p.o. daily. Nitrogl ycerin as needed. Serial cardiac enzymes. Lexiscan. Follow Lexiscan stress test, if negative may discharge home Cardiology consult if needed (2) CHF (congestive heart failure) Current Visit: Yes Status: Acute Fluid restriction. , Low-sodium diet maintain input output . Lasix 40 mg IV daily, Daily weights Echo for LV function ejection fraction (3) h/o CAD (coronary artery disease) Current Visit: Yes Status: Acute Continue current cardiac medications Follow stress test, cardiology consult if needed (4) Hypertension Current Visit: Yes Status: Acute Hydralazine 10 mg IV every 6 hours as needed. We will continue the home medication (5) Diabetes mellitus Current Visit: No Status: Acute Humalog sliding scale Accu-Chek every 6 hours moderate dose coverage. Diabetic education. Repeat BMP in the morning (6) DVT prophylaxis Current Visit: No Status: Acute Heparin 5000 units subcu every 8 hours for DVT prophylaxis. (7) Full code We will closely monitor the patient and adjust management as needed Disposition :follow stress test, echo, if negative discharge Cardiology consult if needed DC planning per case management History Interval history: I have seen and examined the patient at the bedside Patient's chart and medications reviewed Patient feels slightly better Denies chest pain or shortness of breath Vital signs noted Hospitalist Physical - Constitutional Vitals: Temp Pulse Resp BP Pulse Ox 98.1 F 102 H 20 135/63 98 04/30/21 16:32 04/30/21 14:01 04/30/21 16:32 04/30/21 16:32 04/30/21 16:32 General appearance: Present: no acute distress, well-nourished - EENT Eyes: Present: PERRL, EOM intact ENT: clear oral mucosa - Neck Neck: Present: supple, normal ROM - Respiratory Respiratory effort: normal Respiratory: bilateral: diminished, negative: rales, rhonchi, wheezing - Cardiovascular Rhythm: regular Heart Sounds: Present: S1 & S2 - Extremities Extremities: no ischemia, No edema - Abdominal General gastrointestinal: soft, non-tender, non-distended, normal bowel sounds - Integumentary Integumentary: Present: clear, warm - Psychiatric Psychiatric: appropriate mood/affect, cooperative - Neurologic Neurologic: moves all extremities HEART Score - HEART Score EKG: Non-specific Age: > 65 Risk factors: > 3 risk factors or hx of atherosclerotic disease Troponin: Troponin T < 0.010 ng/mL (0.00-0.029) 04/30/21 05:29 Troponin: < normal limit - Critical Actions Critical Actions: 4-6 pts:12-16.6% risk of adverse cardiac event. Should be admitted Results - Labs CBC & Chem 7: 04/29/21 22:33 05/01/21 05:20 Labs: Laboratory Last Values WBC 8.1 K/mm3 (4.5-11.0) 04/29/21: RBC 4.11 M/mm3 (3.65-5.03) 04/29/21 22: Hgb 10.9 gm/dl (10.1-14.3) 04/29/21 22: Hct 34.0 % (30.3-42.9) 04/29/21 22: MCV 83 fl (79-97) 04/29/21 22: MCH 27 pg (28-32) L 04/29/21: MCHC 32 % (30-34) 04/29/21: RDW 14.7 % (13.2-15.2) 04/29/21 22: Plt Count 257 K/mm3 (140-440) 04/29/21 22: Lymph % (Auto) 27.6 % (13.4-35.0) 04/29/21: Dickenson % (Auto) 10.3 % (0.0-7.3) H 04/29/21 22: Eos % (Auto) 2.5 % (0.0-4.3) 04/29/21: Baso % (Auto) 0.4 % (0.0-1.8) 04/29/21: Lymph # (Auto) 2.2 K/mm3 (1.2-5.4) 04/29/21: Dickenson # (Auto) 0.8 K/mm3 (0.0-0.8) 04/29/21: Eos # (Auto) 0.2 K/mm3 (0.0-0.4) 04/29/21 22:33 Baso # (Auto) 0.0 K/mm3 (0.0-0.1) 04/29/21 22:33 Seg Neutrophils % 59.2 % (40.0-70.0) 04/29/21 22:33 Seg Neutrophils # 4.8 K/mm3 (1.8-7.7) 04/29/21 22:33 PT 13.1 Sec. (12.2-14.9) 04/29/21 17:14 INR 0.89 (0.87-1.13) 04/29/21 17:14 APTT 30.1 Sec. (24.2-36.6) 04/29/21 17:14 Sodium 150 mmol/L (137-145) H D 04/29/21 22:33 Potassium 4.1 mmol/L (3.6-5.0) 04/29/21 22:33 Chloride 110.1 mmol/L (98-107) H 04/29/21 22:33 Carbon Dioxide 31 mmol/L (22-30) H 04/29/21 22:33 Anion Gap 13 mmol/L 04/29/21 22:33 BUN 13 mg/dL (7-17) 04/29/21 22:33 Creatinine 0.6 mg/dL (0.6-1.2) 04/29/21 22:33 Estimated GFR > 60 ml/min 04/29/21 22:33 BUN/Creatinine Ratio 22 % 04/29/21 22:33 Glucose 97 mg/dL (65-100) 04/29/21 22:33 POC Glucose 162 mg/dL (70-105) H 04/30/21 16:28 Calcium 8.2 mg/dL (8.4-10.2) L 04/29/21 22:33 Magnesium 1.90 mg/dL (1.7-2.3) 04/29/21 17:14 Total Bilirubin 0.30 mg/dL (0.1-1.2) 04/29/21 17:14 AST 15 units/L (5-40) 04/29/21 17:14 ALT 11 units/L (7-56) 04/29/21 17:14 Alkaline Phosphatase 111 units/L (35-129) 04/29/21 17:14 Total Creatine Kinase 49 units/L (30-135) 04/29/21 17:14 Troponin T < 0.010 ng/mL (0.00-0.029) 04/30/21 05:29 Total Protein 6.4 g/dL (6.3-8.2) 04/29/21 17:14 Albumin 3.6 g/dL (3.9-5) L 04/29/21 17:14 Albumin/Globulin Ratio 1.3 % 04/29/21 17:14 Moon/IV: Voiding Method Toilet Active Medications - Current Medications Current Medications: Generic Name Dose Route Start Last Admin Trade Name Freq PRN Reason Stop Dose Admin Acetaminophen 650 mg 04/29/21 22:09 04/30/21 08:15 Acetaminophen 325 Mg Tab PO 650 mg Q6H PRN Administration Pain, Mild (1-3) Aspirin 325 mg 04/30/21 10:00 04/30/21 10:27 Aspirin Ec 325 Mg Tab PO 325 mg QDAY JANEE Administration Atorvastatin Calcium 40 mg 04/30/21 22:00 Atorvastatin 40 Mg Tab PO QHS JANEE Dextrose 0 ml 04/29/21 22:23 Dextrose 10% *Hypoglycemia IV PRN PRN Hypoglycemia Protocol Furosemide 40 mg 04/30/21 10:00 04/30/21 10:27 Furosemide 40 Mg/4 Ml Inj IV 40 mg QDAY JANEE Administration Guaifenesin 200 mg 04/30/21 20:18 Guaifenesin 100 Mg/5 Ml Oral Liqd PO Q4H PRN Cough Heparin Sodium (Porcine) 5,000 unit 04/30/21 06:00 04/30/21 14:02 Heparin 5,000 Unit/1 Ml Vial SUB-Q 5,000 unit Q8HR JANEE Administration Hydralazine HCl 10 mg 04/29/21 22:28 04/30/21 14:01 Hydralazine 20 Mg/1 Ml Inj IV 10 mg Q6H PRN Administration Blood Pressure Insulin Human Lispro 0 unit 04/30/21 00:00 04/30/21 17:09 Insulin Lispro 100 Unit/Ml SUB-Q 2 unit Q6HR JANEE Administration Protocol Morphine Sulfate 2 mg 04/29/21 22:09 Morphine 4 Mg/1 Ml Inj IV Q5MIN PRN Chest Pain unrelieved by NTG Morphine Sulfate 2 mg 04/30/21 09:46 04/30/21 17:09 Morphine 2 Mg/1 Ml Inj IV 2 mg Q6H PRN Administration Pain, Moderate (4-6) Nitroglycerin 0.4 mg 04/29/21 22:09 Nitroglycerin 0.4 Mg Tab Subl SL Q5M PRN Chest Pain Ondansetron HCl 4 mg 04/30/21 05:34 04/30/21 05:42 Ondansetron 4 Mg/2 Ml Inj IV 4 mg Q6H PRN Administration Nausea Pantoprazole Sodium 40 mg 04/30/21 10:00 04/30/21 10:27 Pantoprazole 40 Mg Tab PO 40 mg QDAY JANEE Administration Paroxetine HCl 40 mg 04/30/21 10:00 04/30/21 10:27 Paroxetine 20 Mg Tab PO 40 mg DAILY JANEE Administration Sodium Chloride 10 ml 04/29/21 22:09 Sodium Chloride 0.9% 10 Ml Flush Syringe IV PRN PRN LINE FLUSH Tramadol HCl 50 mg 04/29/21 22:09 04/30/21 05:42 Tramadol 50 Mg Tab PO 50 mg Q6H PRN Administration Pain, Moderate (4-6) Nutrition/Malnutrition Assess - Dietary Evaluation Nutrition/Malnutrition Findings: Nutrition Notes Start: 04/30/21 14:13 Freq: Status: Active Protocol: Document 04/30/21 14:14 RS (Rec: 04/30/21 14:17 RS [id number]) Nutrition Notes Need for Assessment generated from: Education Initial or Follow up Brief Note Current Diagnosis Coronary Artery Disease, Diabetes,Hypertension,Heart Failure Other Pertinent Diagnosis SOB Current Diet NPO Labs/Tests Na: 150 Cl: 110.1 Co2:31 Pertinent Medications Lasix Height 5 ft 7 in Weight 111.5 kg [place] Body Weight (kg) 61.36 BMI 38.5 Weight change and time frame RYAN at this time Weight Status Obese Subjective/Other Information MD consult for diet education. Pt adm for SOB, sodium/fluid education needed. RD attempted to visit pt in room, pt was asleep and unresponsive. Pt was on Cardiac diet but has been placed on NPO status today d/t upcoming stress test . Nutrition Intervention Follow-Up By: 05/02/21 Additional Comments F/U for sodium/fluid education , appetite levels, wt hx, % of meals consumed.
[2021-05-01] MEDS: INSULIN LISPRO 100 UNIT/ML SUB-Q SCH ×3 (03:00→06:21)
[2021-05-01] MEDS: MORPHINE 2 MG/1 ML INJ IV PRN ×2 (03:09→11:27)
[2021-05-01] MEDS: ACETAMINOPHEN 325 MG TAB PO PRN (04:58)
[2021-05-01] MEDS: ONDANSETRON 4 MG/2 ML INJ IV PRN (04:58)
[2021-05-01] MEDS: HEPARIN 5,000 UNIT/1 ML VIAL SUB-Q SCH (05:04)
[2021-05-01 06:18] LABS: Blood Urea Nitrogen 11 mg/dL (7-17); Calcium 8.9 mg/dL (8.4-10.2); Hemolysis Index 2
[2021-05-01 06:24] LABS: BUN/Creatinine Ratio 22
[2021-05-01] MEDS ORDERED: REGADENOSON 0.4 MG/5 ML INJ IV ONE (07:32)
[2021-05-01] MEDS ORDERED: POTASSIUM CHLORIDE ER 20 MEQ TAB PO NR (09:00)
[2021-05-01] MEDS ORDERED: LISINOPRIL 20 MG TAB PO SCH (10:00)
[2021-05-01] MEDS ORDERED: carvediloL 6.25 MG TAB PO SCH (10:00)
[2021-05-01] MEDS ORDERED: GABAPENTIN 300 MG CAP PO SCH (10:00)
[2021-05-01] MEDS: ASPIRIN EC 325 MG TAB PO SCH (10:55)
[2021-05-01] MEDS: PARoxetine 20 MG TAB PO SCH (10:55)
[2021-05-01] MEDS: PANTOPRAZOLE 40 MG TAB PO SCH (10:56)
[2021-05-01] MEDS: FUROSEMIDE 40 MG/4 ML INJ IV SCH (10:56)
--- NOTE | 2021-05-01 11:38 | Electrocardiograph Report ---
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 Electronically Signed On 05-01-2021 11:37:47 EST by Hao Gomez
[2021-05-01 11:52] VITALS: BP 164/77
--- NOTE | 2021-05-01 13:55 | Nuclear Medicine Report ---
APPROVED REPORT Exam: Nuclear Stress Test Indication: Chest pain Patient Location: [address] [place] [address] Room #: 484 Ht: 5 ft 7 in Wt: 243 lbs BSA: 2.20 m2 HR: 96 bpmBP: 177/96 mmHgBMI: 38.05 Rhythm: SINUS RHYTHM NS T WAVW ABNORMALITY SHORT QT INTERVAL Medical History Medical History: HTN, Diabetic Insulin Stress Test Details Stress Test: Pharmacologic stress testing performed using 0.4 mg of regadenoson per 5 mL given IV over 10 seconds. HR Resting HR: 96 bpm Max HR Achieved: 109 bpm Max Heart Rate (APMHR): 142 bpm Target HR (85% APMHR): 120 bpm % of APMHR: 76 BP Resting BP: 162/84 mmHg Max BP: 177/96 mmHg Recovery BP: 137/95 mmHg ECG Resting ECG: Sinus Rhythm Stress ECG: Sinus Tachycardia ST Change: None Arrhythmia: None Recovery ECG: Sinus Rhythm Recovery ST Change: None Recovery Arrhythmia: None Clinical Reason for Termination: Completed protocol Stress Symptoms: None Stress ECG Conclusion No chest pain and no ST changes of ischemia with pharmacologic stress. Myocardial perfusion images are dictated separately. NM EXAM: Myocardial Perfusion REST/STRESS Imaging Protocol: Rest Tc-99m/Stress Tc-99m 1 day Resting Data Rest SPECT myocardial perfusion imaging was performed in supine position 45 minutes following the intravenous injection of 10 mCi of Tc-99m Myoview. Time of rest injection: 0730 Pharmacologic Stress Pharmacologic stress test was performed by injecting Regadenoson 0.4 mg IV push followed by the intravenous injection of 28 mCi of Tc-99m Myoview. Time of stress injection: 0855 Gated Stress SPECT was performed 30 minutes after stress injection. The images were gated to evaluate regional wall motion and calculate left ventricular ejection fraction. Study Data TID = 1.15. Perfusion Wall Motion Normal left ventricular systolic function, ejection fraction 66%. Nuclear Conclusion ECG Findings: negative for ischemia Clinical Findings: negative for ischemia Nuclear Findings: negative for ischemia Left Ventricular Function: normal Risk Study: low Normal rest and stress perfusion images, no perfusion defects identified. Normal left ventricular systolic function, ejection fraction 66%. Conclusion No chest pain and no ST changes of ischemia with pharmacologic stress. Myocardial perfusion images are dictated separately.
--- NOTE | 2021-05-03 10:11 | Electrocardiograph Report ---
[facility] Test Date: 2021-05-01 Test Time: 11:54:12 Pat Name: TERESO BRAVO Department: Room: A484 1 Gender: F Mortar Maker: BLAISE : 1940 Requested By: SANDIP KING Order Number: [id number] Reading MD: Alysia Martínez Measurements Intervals [place] Rate: 100 P: 32 KS: 135 QRS: -18 QRSD: 84 T: 90 QT: 363 QTc: 469 Interpretive Statements Sinus tachycardia Nonspecific T abnormalities, lateral leads Compared to ECG 04/30/2021 10:37:33 No significant change Electronically Signed On 05-03-2021 10:10:23 EST by Alysia Martínez
== END 2021-05-01 14:00 | disposition home or self-care (01) | DRG 292 ==
LOC: ED 15:36 → 4A 22:09
PROVIDERS: ADMIT Hospitalist; ATTEND Internal Medicine
DX: I11.0 Hypertensive heart disease with heart failure (principal); I24.9 Acute ischemic heart disease, unspecified; E11.9 Type 2 diabetes mellitus without complications; I50.9 Heart failure, unspecified; I25.2 Old myocardial infarction; M19.90 Unspecified osteoarthritis, unspecified site; I25.10 Atherosclerotic heart disease of native coronary artery without angina pectoris
CPT/HCPCS: 36415; 71046; 78452; 80048; 80053; 82550; 82962; 83036; 83735; 84484; 85025; 85610; 85730; 93005; 93010; 93017; 93306; G0378; Q9967; A9502; C8929; C9113; J0360; J1644; J1815; J1940; J2270; J2405; J2785

== ENCOUNTER 2021-07-14 08:40 | Emergency (ER) | payer MEDICARE ==
[2021-07-14] MEDS ORDERED: MORPHINE 4 MG/1 ML INJ IV ONE ×3 (09:25→11:42)
[2021-07-14] MEDS ORDERED: ONDANSETRON 4 MG/2 ML INJ IV ONE (09:25)
--- NOTE | 2021-07-14 09:26 | Emergency Department Report ---
ED General Adult HPI - General Chief complaint: Fall Stated complaint: GROUND LEVEL FALL Time Seen by Provider: 07/14/21 09:22 Source: patient, EMS ( EMS documentation not available at time of chart dictation ), RN notes reviewed, old records reviewed Mode of arrival: Stretcher Limitations: Physical Limitation - History of Present Illness Initial comments: The patient is a 81-year-old female with a body mass index of 35, diabetes, hypertension and high cholesterol, who presents to the ER today with a complaint of right hip, and right proximal thigh pain, after mechanical accidental fall from standing, without hitting her head. She denies additional injuries and complaints. -: Sudden, minutes(s) Location: right, lower extremity Severity scale (0 -10): 9 Quality: aching Consistency: constant Improves with: medication, rest Worsens with: movement Associated Symptoms: denies other symptoms - Related Data Home Medications Medication Instructions Recorded Confirmed Last Taken PARoxetine (NF) [Paxil] 40 mg PO DAILY 12/01/12 05/01/21 Unknown Gabapentin 300 mg PO DAILY 04/30/21 05/01/21 Unknown Mirtazapine [Remeron 30mg TAB] 30 mg PO QHS 04/30/21 05/01/21 Unknown carvediloL [Coreg] 6.25 mg PO BIDWM 04/30/21 05/01/21 Unknown lisinopriL [Lisinopril] 20 mg PO DAILY 04/30/21 05/01/21 Unknown Albuterol Mdi (or & Nicu Only) 2 puff IH QID PRN 05/01/21 05/01/21 Unknown [ProAir HFA Inhaler] AtorvaSTATin [Lipitor] 20 mg PO QHS 05/01/21 05/01/21 Unknown Famotidine [Pepcid] 40 mg PO QHS 05/01/21 05/01/21 Unknown Insulin Aspart (Nf) [NovoLOG 25 units SQ BIDWM 05/01/21 05/01/21 Unknown Flexpen] Insulin Glargine,Hum.rec.anlog 10 unit SQ QDAY 05/01/21 05/01/21 Unknown [Lantus Solostar] Mirabegron [Myrbetriq] 50 mg PO QHS 05/01/21 05/01/21 Unknown hydrOXYzine HCL [Atarax] 25 mg PO Q8H 05/01/21 05/01/21 Unknown Previous Rx's Medication Instructions Recorded Last Taken Type Omeprazole 40 mg PO BID #60 05/01/21 Unknown Rx Acetaminophen [Tylenol Extra 500 mg PO Q6HR PRN #30 tab 07/14/21 Unknown Rx Strength] Ibuprofen [Motrin] 400 mg PO Q8H PRN #30 tablet 07/14/21 Unknown Rx Allergies Allergy/AdvReac Type Severity Reaction Status Date / Time meperidine HCl [From Demerol] Allergy Headache Verified 04/29/21 15:41 ED Review of Systems ROS: Stated complaint: GROUND LEVEL FALL Other details as noted in HPI Comment: All other systems reviewed and negative Musculoskeletal: arthralgia, myalgia ED Past Medical Hx - Past Medical History Hx Hypertension: Yes Hx Heart Attack/AMI: Yes Hx Diabetes: Yes Hx Arthritis: Yes Additional medical history: colon ca, breast ca in remission - Surgical History Additional Surgical History: L lumpectomy - Social History Smoking Status: Never Smoker - Medications Home Medications: Home Medications Medication Instructions Recorded Confirmed Last Taken Type PARoxetine (NF) [Paxil] 40 mg PO DAILY 12/01/12 05/01/21 Unknown History Gabapentin 300 mg PO DAILY 04/30/21 05/01/21 Unknown History Mirtazapine [Remeron 30mg TAB] 30 mg PO QHS 04/30/21 05/01/21 Unknown History carvediloL [Coreg] 6.25 mg PO BIDWM 04/30/21 05/01/21 Unknown History lisinopriL [Lisinopril] 20 mg PO DAILY 04/30/21 05/01/21 Unknown History Albuterol Mdi (or & Nicu Only) 2 puff IH QID PRN 05/01/21 05/01/21 Unknown History [ProAir HFA Inhaler] AtorvaSTATin [Lipitor] 20 mg PO QHS 05/01/21 05/01/21 Unknown History Famotidine [Pepcid] 40 mg PO QHS 05/01/21 05/01/21 Unknown History Insulin Aspart (Nf) [NovoLOG 25 units SQ BIDWM 05/01/21 05/01/21 Unknown History Flexpen] Insulin Glargine,Hum.rec.anlog 10 unit SQ QDAY 05/01/21 05/01/21 Unknown History [Lantus Solostar] Mirabegron [Myrbetriq] 50 mg PO QHS 05/01/21 05/01/21 Unknown History Omeprazole 40 mg PO BID #60 05/01/21 Unknown Rx hydrOXYzine HCL [Atarax] 25 mg PO Q8H 05/01/21 05/01/21 Unknown History Acetaminophen [Tylenol Extra 500 mg PO Q6HR PRN #30 tab 07/14/21 Unknown Rx Strength] Ibuprofen [Motrin] 400 mg PO Q8H PRN #30 tablet 07/14/21 Unknown Rx ED Physical Exam - General Limitations: Physical Limitation General appearance: alert, anxious, in distress - Head Head exam: Present: atraumatic, normocephalic - Eye Eye exam: Present: normal appearance, EOMI. Absent: nystagmus - ENT ENT exam: Present: normal exam, normal orophraynx, mucous membranes moist, normal external ear exam - Neck Neck exam: Present: normal inspection, full ROM. Absent: tenderness, meningismus - Respiratory Respiratory exam: Present: normal lung sounds bilaterally. Absent: respiratory distress, wheezes, rales, rhonchi, stridor, decreased breath sounds - Cardiovascular Cardiovascular Exam: Present: regular rate, normal rhythm, normal heart sounds. Absent: bradycardia, tachycardia, irregular rhythm, systolic murmur, diastolic murmur, rubs, gallop - GI/Abdominal GI/Abdominal exam: Present: soft. Absent: distended, tenderness, guarding, rebound, rigid, pulsatile mass - Extremities Exam Extremities exam: Present: normal inspection, full ROM (Left upper extremity, bilateral lower extremities), tenderness (Right hip, right femur), other (2+ pulses noted in the bilateral upper and lower extremities. Upper extremities nontender. Left lower extremity nontender. Distal right lower extremity nontender. Proximal right lower extremity tender. Range of motion intact in the bilateral ankles, bilateral knees. Range of motion intact in l). Absent: calf tenderness - Back Exam Back exam: Present: normal inspection - Neurological Exam Neurological exam: Present: alert, oriented X3, other (No facial droop. Tongue midline. Extraocular movements intact bilaterally. Facial sensation intact to light touch in V1, V2, V3 distribution bilaterally. 5 and a 5 strength in 4 extremities. Sensation intact to light touch in 4 extremities.). Absent: motor sensory deficit - Psychiatric Psychiatric exam: Present: anxious - Skin Skin exam: Present: warm, dry, intact, normal color. Absent: rash ED Course Vital Signs 07/14/21 07/14/21 07/14/21 08:43 08:55 09:00 Temperature 98.4 F Pulse Rate 92 H Respiratory 16 Rate Blood Pressure 175/100 Blood Pressure 132/82 [Left] O2 Sat by Pulse 98 96 96 Oximetry 07/14/21 07/14/21 07/14/21 09:03 09:05 09:30 Temperature Pulse Rate 92 H Respiratory 16 Rate Blood Pressure 157/126 Blood Pressure 175/100 [Left] O2 Sat by Pulse 96 96 96 Oximetry 07/14/21 07/14/21 07/14/21 10:28 10:42 11:00 Temperature Pulse Rate Respiratory Rate Blood Pressure 157/126 157/126 157/87 Blood Pressure [Left] O2 Sat by Pulse 94 93 91 Oximetry 07/14/21 07/14/21 11:30 12:00 Temperature Pulse Rate Respiratory Rate Blood Pressure 167/104 167/104 Blood Pressure [Left] O2 Sat by Pulse 91 90 Oximetry - Reevaluation(s) Reevaluation #1: 07/14/21 10:00 Differential diagnosis, including but not limited to: Sprain, strain, fracture, dislocation Assessment and plan: 81-year-old elderly female status post mechanical fall, with right femur and pelvis/hip pain. Place patient on monitor and storage bin tender. Obtain appropriate plain films. Treat her pain. Reassess. Denies additional injuries and complaints. Reports specifically that she did not hit her head or cervical spine. Clinically sober at this time moving 4 extremities, with exception of her proximal right hip 07/14/21 10:39 Plain films do not demonstrate obvious fracture or dislocation. Given advanced age, moderate to high clinical suspicion, we will obtain noncontrast CT scan of the bony pelvis. Additional pain medication ordered. Of note, this patient does report that she has a walker and cane at home, and does report occasional falls. She also reports that she lives by herself. Showed no fracture be noted on CT scan pelvis, will obtain case management consultation for physical therapy evaluation and treat 07/14/21 12:11 CT scan of the pelvis is negative for acute findings. Patient seen in consultation with case management and physical therapy. Patient is ambulatory with a rolling walker, and ambulates without significant difficulty. Patient does not meet criteria for subacute rehabilitation. Case management and physical therapy to arrange for home rehabilitation. Patient counseled multiple times to expect to be sore over the next 3 days, given natural history of fall. Patient has been in this ER for hours without clinical deterioration or decompensation. She is suitable for discharge at this point time with the aforementioned outpatient care plan. Return precautions are reviewed. ED Medical Decision Making - Lab Data Vital Signs 07/14/21 07/14/21 07/14/21 08:43 09:03 09:05 Temperature 98.4 F Pulse Rate 92 H 92 H Respiratory 16 16 Rate Blood Pressure 132/82 175/100 [Left] O2 Sat by Pulse 98 96 96 Oximetry - Radiology Data Radiology results: report reviewed, image reviewed PELVIS 1 VIEW(S) INDICATION / CLINICAL INFORMATION: fall right leg pain COMPARISON: CT scan dated 05/21/2020 FINDINGS: BONES / JOINT(S): No acute fracture or subluxation. There is mild degenerative change in both hip joints. SOFT TISSUES: No significant abnormality. ADDITIONAL FINDINGS: None. IMPRESSION: No fracture is seen. There is mild degenerative change in the hip joints. RIGHT FEMUR 2 VIEW(S) INDICATION / CLINICAL INFORMATION: fall right leg pain COMPARISON: None available. FINDINGS: BONES / JOINT(S): No acute fracture or subluxation. There is mild degenerative change in the right hip joint and in the medial compartment of the knee joint. SOFT TISSUES: No significant abnormality. ADDITIONAL FINDINGS: None. Impression: No fracture is seen. No dislocation is seen. Signer Name: Joe Paulino MD Signed: 07/14/2021 9:29 AM Workstation Name: [email or web address] . CT pelvis wo con INDICATION / CLINICAL INFORMATION: fall right leg pain hip/ proximal femur fracture. TECHNIQUE: Axial coronal and sagittal images All CT scans at this location are performed using CT dose reduction for ALARA by means of automated exposure control. COMPARISON: None available. FINDINGS: Degenerative change throughout the lower lumbar spine and SI joints. There is moderate to advanced degenerative change in bilateral hips. The superior and inferior pubic rami appear intact. Acetabulum appear normal. No displaced fracture is seen. There is sigmoid diverticula. There is some soft tissue density thickening along the posterior rectum and anal region, nonspecific IMPRESSION: 1. 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 There is soft tissue density within and surrounding the rectum and anus, nonspecific. Sigmoid diverticulosis Signer Name: Garrett Zayas MD Signed: 07/14/2021 9:58 AM Workstation Name: [employer] Critical care attestation.: If time is entered above; I have spent that time in minutes in the direct care of this critically ill patient, excluding procedure time. ED Disposition Clinical Impression: Right leg pain, Fall Disposition: HOME / SELF CARE / HOMELESS Is pt being admited?: No Does the pt Need Aspirin: No Condition: Good Instructions: RICE Therapy for Routine Care of Injuries Additional Instructions: Pain typically gets worse before it gets better after mechanical fall. Please use a rolling walker or cane as directed by physical therapy to assist with ambulation. Take the prescribed pain medications as needed and directed. Alternate ice packs and heat packs as needed for physical pain. Please follow-up with your primary care doctor within the next week. Please continue current outpatient medications. Please return to the emergency room right away with new pain, worsened pain, migration of pain, projectile vomiting, change in mental status, confusion, inability tolerate liquid feeds, new, worsened or different symptoms not present on the initial emergency room evaluation Referrals: [facility] [Provider Group] - 7-10 days
--- NOTE | 2021-07-14 10:33 | XRay Report ---
PELVIS 1 VIEW(S) INDICATION / CLINICAL INFORMATION: fall right leg pain COMPARISON: CT scan dated 05/21/2020 FINDINGS: BONES / JOINT(S): No acute fracture or subluxation. There is mild degenerative change in both hip wilfred nts. SOFT TISSUES: No significant abnormality. ADDITIONAL FINDINGS: None. IMPRESSION: No fracture is seen. There is mild degenerative change in the hip joints. RIGHT FEMUR 2 VIEW(S) INDICATION / CLINICAL INFORMATION: fall right leg pain COMPARISON: None available. FINDINGS: BONES / JOINT(S): No acute fracture or subluxation. There is mild degenerative change in the right hi p joint and in the medial compartment of the knee joint. SOFT TISSUES: No significant abnormality. ADDITIONAL FINDINGS: None. Impression: No fracture is seen. No dislocation is seen. Signer Name: Joe Paulino MD Signed: 07/14/2021 10:29 AM Workstation Name: [employer]
--- NOTE | 2021-07-14 11:04 | Cat Scan Report ---
. CT pelvis wo con INDICATION / CLINICAL INFORMATION: fall right leg pain hip/ proximal femur fracture. TECHNIQUE: Axial coronal and sagittal images All CT scans at this location are performed using CT dose reduction for ALARA by means of automated exposure control. COMPARISON: None available. FINDINGS: Degenerative change throughout the lower lumbar spine and SI joints. There is moderate to advanced de generative change in bilateral hips. The superior and inferior pubic rami appear intact. Acetabulum a ppear normal. No displaced fracture is seen. There is sigmoid diverticula. There is some soft tissue density thickening along the posterior rectum and anal region, nonspecific IMPRESSION: 1. 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 There is soft tissue density within and surrounding the rectum and anus, nonspecific. Sigmoid dive rticulosis Signer Name: Garrett Zayas MD Signed: 07/14/2021 10:58 AM Workstation Name: [employer]
[2021-07-14] MEDS ORDERED: ACETAMINOPHEN 325 MG TAB PO ONE (11:42)
[2021-07-14] MEDS ORDERED: IBUPROFEN 200 MG TAB PO ONE (11:42)
[2021-07-14 12:06] VITALS: BP 167/104
== END 2021-07-14 12:41 | disposition home or self-care (01) ==
LOC: ED 08:40
DX: M79.604 Pain in right leg (principal); M25.551 Pain in right hip; I10 Essential (primary) hypertension; E11.9 Type 2 diabetes mellitus without complications; M19.90 Unspecified osteoarthritis, unspecified site; Z88.8 Allergy status to other drugs, medicaments and biological substances; Z79.899 Other long term (current) drug therapy; Z79.4 Long term (current) use of insulin; W18.39XA Other fall on same level, initial encounter; Y93.89 Activity, other specified; Y92.89 Other specified places as the place of occurrence of the external cause; Y99.8 Other external cause status
CPT/HCPCS: 72170; 72192; 73552; 96374; 96375; 96376; 99284; J2270; J2405

== ENCOUNTER 2021-07-15 07:53 | Emergency (ER) | payer MEDICARE ==
[2021-07-15 08:02] VITALS: BP 140/88
== END 2021-07-15 09:44 | disposition left against medical advice (07) ==
LOC: ED 07:53
DX: M25.551 Pain in right hip (principal); Z53.21 Procedure and treatment not carried out due to patient leaving prior to being seen by health care provider